=== PATIENT | female | born 1975 ===

== ENCOUNTER 2018-10-06 19:57 | Inpatient (IN) | payer OTHER, SELFPAY ==
--- NOTE | 2018-10-06 20:11 | Emergency Department Report ---
Blank Doc - Documentation Documentation: This is a 42-year-old female that presents with RLQ abdominal with radiating to right flank area. This initial assessment/diagnostic orders/clinical plan/treatment(s) is/are subject to change based on patient's health status, clinical progression and re- assessment by fellow clinical providers in the ED. Further treatment and workup at subsequent clinical providers discretion. Patient/guardians urged not to elope from the ED as their condition may be serious if not clinically assessed and managed. Initial orders include: 1- Patient sent to [facility] for further evaluation and treatment 2- labs 3- UA
[2018-10-06 21:02] LABS: Basophils % (Auto) 0.2 % (0.0-1.8); Eosinophils % (Auto) 0.1 % (0.0-4.3); Hematocrit 27.4 % (30.3-42.9); Hemoglobin 8.2 gm/dl (10.1-14.3); Lymphocytes # (Auto) 1.2 K/mm3 (1.2-5.4); Lymphocytes % (Auto) 6.6 % (13.4-35.0); Mean Corpuscular HGB Conc 30 % (30-34); Monocytes # (Auto) 0.8 K/mm3 (0.0-0.8); Monocytes % (Auto) 4.8 % (0.0-7.3); Platelet Count 453 K/mm3 (140-440); Red Blood Count 4.56 M/mm3 (3.65-5.03); Red Cell Distribution Width 19.8 % (13.2-15.2)
[2018-10-06 21:09] LABS: Mean Corpuscular Volume 60 fl (79-97)
[2018-10-06 21:18] LABS: Alanine Aminotransferase 14 units/L (7-56); Albumin 3.8 g/dL (3.9-5); BUN/Creatinine Ratio 24; Blood Urea Nitrogen 12 mg/dL (7-17); Calcium 9.1 mg/dL (8.4-10.2); Hemolysis Index 10
[2018-10-06 21:19] LABS: Bilirubin,Direct < 0.2 mg/dL (0-0.2)
[2018-10-06 21:39] LABS: Bilirubin,Urine NEG (Negative); Blood,Urine NEG (Negative); Color,Urine Yellow (Yellow); Mucus,Urine FEW /HPF; Urobilinogen,Urine < 2.0 mg/dL (<2.0)
[2018-10-06] MEDS ORDERED: NACL 0.9% 1000 ML IV ONE (22:26)
[2018-10-06] MEDS ORDERED: NACL 0.9% 1000 ML 1,000 ML ONE (22:34)
[2018-10-06] MEDS ORDERED: ZOFRAN ONE (22:47)
[2018-10-06] MEDS: DILAUDID IV PRN (23:08)
--- NOTE | 2018-10-06 23:28 | Cat Scan Report ---
PROCEDURE: CT ABDOMEN PELVIS W CON TECHNIQUE: Computerized axial tomography of the abdomen and pelvis was performed without intravenous contrast. This study is performed without intravascular contrast material and its sensitivity for ab dominal and pelvic pathology, including neoplasms, inflammation, abscess, free fluid, thrombosis, art erial dissection and infarction, is reduced compared with a contrast enhanced study. CT DOSE LENGTH PRODUCT: 3292.3 mGycm HISTORY: abd pain COMPARISONS: None . FINDINGS: Liver, spleen, pancreas and adrenal glands are within normal limits. Bilateral kidneys demonstrate un iform enhancement without hydronephrosis. Urinary bladder is normally filled with normal outlines. Ao rta is of normal caliber. There is no significant free fluid. No free air is noted. Gallbladder is un remarkable. Small bowel loops are within normal limits. Mild degree of residual stool. There is mild degree fat induration in the right adnexal region surrounding the right ovary. Right ovary measures 4 .8 x 2.8 cm. Appendix is located in close proximity to the right ovary. IMPRESSION: Fat induration surrounding the right ovary most likely represent changes secondary to et iologies such as tubo-ovarian inflammatory process. Appendicitis is felt to be less likely. Transabdo markos and transvaginal ultrasound pelvis and follow-up studies may be recommended. This document is electronically signed by Sarthak Mayfield MD., October 06 2018 11:25:47 PM ET
[2018-10-07 00:02] LABS: Mean Corpuscular HGB Conc 29 % (30-34); Platelet Count 447 K/mm3 (140-440); Red Blood Count 4.72 M/mm3 (3.65-5.03)
--- NOTE | 2018-10-07 00:09 | Emergency Department Report ---
ED Abdominal Pain HPI - General Chief Complaint: Abdominal Pain Stated Complaint: R FLANK PAIN Time Seen by Provider: 10/06/18 20:10 Source: patient Mode of arrival: Ambulatory Limitations: No Limitations - History of Present Illness Initial Comments: 42-year-old female comes to the emergency room for right lower quadrant pain that started this morning as be in mild and as the day progresses gotten worse. Patient denies any nausea vomiting or diarrhea. Patient denies any fever or chills. She denies any dysuria or hematuria. She has no past medical history currently takes no medications on a daily basis has no known drug allergies. Surgical history 15 years ago. -: This morning Location: R flank Radiation: RLQ Severity scale (0 -10): 10 Quality: stabbing, sharp Consistency: constant Improves With: nothing Worsens With: nothing Associated Symptoms: denies other symptoms - Related Data Previous Rx's Medication Instructions Recorded Last Taken Type DOXYCYCLINE Hyclate [Vibramycin 100 mg PO BID #14 capsule 10/11/18 Unknown Rx CAP] metroNIDAZOLE [Flagyl TAB] 500 mg PO Q8HR #42 tablet 10/11/18 Unknown Rx oxyCODONE /ACETAMINOPHEN [Percocet 1 tab PO Q8H PRN #7 tablet 10/11/18 Unknown Rx 5/325 mg] Allergies Allergy/AdvReac Type Severity Reaction Status Date / Time No Known Allergies Allergy Unverified 10/06/18 20:14 ED Review of Systems ROS: Stated complaint: R FLANK PAIN Other details as noted in HPI ED Past Medical Hx - Past Medical History Previous Medical History?: No - Surgical History Past Surgical History?: No - Social History Smoking Status: Never Smoker Substance Use Type: None - Medications Home Medications: Home Medications Medication Instructions Recorded Confirmed Last Taken Type DOXYCYCLINE Hyclate [Vibramycin 100 mg PO BID #14 capsule 10/11/18 Unknown Rx CAP] metroNIDAZOLE [Flagyl TAB] 500 mg PO Q8HR #42 tablet 10/11/18 Unknown Rx oxyCODONE /ACETAMINOPHEN [Percocet 1 tab PO Q8H PRN #7 tablet 10/11/18 Unknown Rx 5/325 mg] ED Physical Exam - General Limitations: No Limitations General appearance: alert, in distress (secondary to pain) - Eye Eye exam: Present: PERRL, EOMI - ENT ENT exam: Present: mucous membranes moist - Neck Neck exam: Present: normal inspection, full ROM - Respiratory Respiratory exam: Present: normal lung sounds bilaterally. Absent: respiratory distress - Cardiovascular Cardiovascular Exam: Present: tachycardia - GI/Abdominal GI/Abdominal exam: Present: soft, tenderness (right lower quadrant right flank), guarding. Absent: distended - Extremities Exam Extremities exam: Present: normal inspection, full ROM - Back Exam Back exam: Present: CVA tenderness (R) - Neurological Exam Neurological exam: Present: alert, oriented X3 - Psychiatric Psychiatric exam: Present: normal affect, normal mood - Skin Skin exam: Present: warm, dry, intact, normal color. Absent: rash ED Course Vital Signs 10/06/18 10/06/18 10/06/18 20:02 20:11 23:57 Temperature 98.8 F 98.2 F 98.3 F Pulse Rate 101 H 100 H 94 H Respiratory 20 16 29 H Rate Blood Pressure 126/72 126/72 Blood Pressure 133/78 [Right] O2 Sat by Pulse 98 98 100 Oximetry 10/07/18 10/07/18 10/07/18 02:21 03:25 04:00 Temperature 98.8 F 98.7 F Pulse Rate 85 85 86 Respiratory 20 23 24 Rate Blood Pressure 114/69 Blood Pressure 119/70 114/65 [Right] O2 Sat by Pulse 99 95 96 Oximetry 10/07/18 10/07/18 10/07/18 04:51 05:00 05:11 Temperature Pulse Rate 87 84 86 Respiratory 23 17 27 H Rate Blood Pressure 120/71 127/80 124/73 Blood Pressure [Right] O2 Sat by Pulse 98 98 98 Oximetry 10/07/18 10/07/18 10/07/18 05:21 05:31 05:41 Temperature Pulse Rate 90 88 88 Respiratory 29 H 25 H 26 H Rate Blood Pressure 124/73 124/73 124/73 Blood Pressure [Right] O2 Sat by Pulse 96 97 97 Oximetry 10/07/18 10/07/18 10/07/18 05:51 06:00 06:11 Temperature Pulse Rate 87 88 97 H Respiratory 24 26 H 25 H Rate Blood Pressure 124/73 122/73 122/73 Blood Pressure [Right] O2 Sat by Pulse 97 96 99 Oximetry ED Medical Decision Making - Lab Data Result diagrams: 10/11/18 04:45 10/11/18 20:44 Lab Results 10/06/18 10/06/1819 Range/Units 20:18 20:18 20:18 WBC 17.5 H (4.5-11.0) K/mm3 RBC 4.56 (3.65-5.03) M/mm3 Hgb 8.2 L (10.1-14.3) gm/dl Hct 27.4 L (30.3-42.9) % MCV 60 L (79-97) fl MCH 18 L (28-32) pg MCHC 30 (30-34) % RDW 19.8 H (13.2-15.2) % Plt Count 453 H (140-440) K/mm3 Lymph % (Auto) 6.6 L (13.4-35.0) % [place] % (Auto) 4.8 (0.0-7.3) % Eos % (Auto) 0.1 (0.0-4.3) % Baso % (Auto) 0.2 (0.0-1.8) % Lymph # 1.2 (1.2-5.4) K/mm3 [place] # 0.8 (0.0-0.8) K/mm3 Eos # 0.0 (0.0-0.4) K/mm3 Baso # 0.0 (0.0-0.1) K/mm3 Seg Neutrophils % 88.3 H (40.0-70.0) % Seg Neutrophils # 15.4 H (1.8-7.7) K/mm3 Sodium 133 L (137-145) mmol/L Potassium 3.6 (3.6-5.0) mmol/L Chloride 104.8 (98-107) mmol/L Carbon Dioxide 19 L (22-30) mmol/L Anion Gap 13 mmol/L BUN 12 (7-17) mg/dL Creatinine 0.5 L (0.7-1.2) mg/dL Estimated GFR > 60 ml/min BUN/Creatinine Ratio 24 % Glucose 133 H (65-100) mg/dL Lactic Acid (0.7-2.0) mmol/L Calcium 9.1 (8.4-10.2) mg/dL Total Bilirubin 0.20 (0.1-1.2) mg/dL Direct Bilirubin < 0.2 (0-0.2) mg/dL Indirect Bilirubin 0.0 mg/dL AST 18 (5-40) units/L ALT 14 (7-56) units/L Alkaline Phosphatase 88 (35-129) units/L Total Protein 7.8 (6.3-8.2) g/dL Albumin 3.8 L (3.9-5) g/dL Albumin/Globulin Ratio 1.0 % Lipase 109 H (13-60) units/L HCG, Qual Negative (Negative) Urine Color (Yellow) Urine Turbidity (Clear) Urine pH (5.0-7.0) Ur Specific [place] (1.003-1.030) Urine Protein (Negative) mg/dL Urine Glucose (UA) (Negative) mg/dL Urine Ketones (Negative) mg/dL Urine Blood (Negative) Urine Nitrite (Negative) Urine Bilirubin (Negative) Urine Urobilinogen (<2.0) mg/dL Ur Leukocyte Esterase (Negative) Urine WBC (Auto) (0.0-6.0) /HPF Urine RBC (Auto) (0.0-6.0) /HPF U Epithel Cells (Auto) (0-13.0) /HPF Urine Mucus /HPF 10/06/18 10/06/18 10/06/18 Range/Units 21:20 23:11 23:11 WBC 19.2 H (4.5-11.0) K/mm3 RBC 4.72 (3.65-5.03) M/mm3 Hgb 8.3 L (10.1-14.3) gm/dl Hct 28.6 L (30.3-42.9) % MCV 61 L (79-97) fl MCH 18 L (28-32) pg MCHC 29 L (30-34) % RDW 20.1 H (13.2-15.2) % Plt Count 447 H (140-440) K/mm3 Lymph % (Auto) (13.4-35.0) % [place] % (Auto) (0.0-7.3) % Eos % (Auto) (0.0-4.3) % Baso % (Auto) (0.0-1.8) % Lymph # (1.2-5.4) K/mm3 [place] # (0.0-0.8) K/mm3 Eos # (0.0-0.4) K/mm3 Baso # (0.0-0.1) K/mm3 Seg Neutrophils % (40.0-70.0) % Seg Neutrophils # (1.8-7.7) K/mm3 Sodium (137-145) mmol/L Potassium (3.6-5.0) mmol/L Chloride (98-107) mmol/L Carbon Dioxide (22-30) mmol/L Anion Gap mmol/L BUN (7-17) mg/dL Creatinine (0.7-1.2) mg/dL Estimated GFR ml/min BUN/Creatinine Ratio % Glucose (65-100) mg/dL Lactic Acid 1.30 (0.7-2.0) mmol/L Calcium (8.4-10.2) mg/dL Total Bilirubin (0.1-1.2) mg/dL Direct Bilirubin (0-0.2) mg/dL Indirect Bilirubin mg/dL AST (5-40) units/L ALT (7-56) units/L Alkaline Phosphatase (35-129) units/L Total Protein (6.3-8.2) g/dL Albumin (3.9-5) g/dL Albumin/Globulin Ratio % Lipase (13-60) units/L HCG, Qual (Negative) Urine Color Yellow (Yellow) Urine Turbidity Clear (Clear) Urine pH 5.0 (5.0-7.0) Ur Specific [place] 1.028 (1.003-1.030) Urine Protein 100 mg/dl (Negative) mg/dL Urine Glucose (UA) Neg (Negative) mg/dL Urine Ketones Neg (Negative) mg/dL Urine Blood Neg (Negative) Urine Nitrite Neg (Negative) Urine Bilirubin Neg (Negative) Urine Urobilinogen < 2.0 (<2.0) mg/dL Ur Leukocyte Esterase Neg (Negative) Urine WBC (Auto) 1.0 (0.0-6.0) /HPF Urine RBC (Auto) 4.0 (0.0-6.0) /HPF U Epithel Cells (Auto) 2.0 (0-13.0) /HPF Urine Mucus Few /HPF 10/07/18 Range/Units 01:43 WBC (4.5-11.0) K/mm3 RBC (3.65-5.03) M/mm3 Hgb (10.1-14.3) gm/dl Hct (30.3-42.9) % MCV (79-97) fl MCH (28-32) pg MCHC (30-34) % RDW (13.2-15.2) % Plt Count (140-440) K/mm3 Lymph % (Auto) (13.4-35.0) % [place] % (Auto) (0.0-7.3) % Eos % (Auto) (0.0-4.3) % Baso % (Auto) (0.0-1.8) % Lymph # (1.2-5.4) K/mm3 [place] # (0.0-0.8) K/mm3 Eos # (0.0-0.4) K/mm3 Baso # (0.0-0.1) K/mm3 Seg Neutrophils % (40.0-70.0) % Seg Neutrophils # (1.8-7.7) K/mm3 Sodium (137-145) mmol/L Potassium (3.6-5.0) mmol/L Chloride (98-107) mmol/L Carbon Dioxide (22-30) mmol/L Anion Gap mmol/L BUN (7-17) mg/dL Creatinine (0.7-1.2) mg/dL Estimated GFR ml/min BUN/Creatinine Ratio % Glucose (65-100) mg/dL Lactic Acid 1.20 (0.7-2.0) mmol/L Calcium (8.4-10.2) mg/dL Total Bilirubin (0.1-1.2) mg/dL Direct Bilirubin (0-0.2) mg/dL Indirect Bilirubin mg/dL AST (5-40) units/L ALT (7-56) units/L Alkaline Phosphatase (35-129) units/L Total Protein (6.3-8.2) g/dL Albumin (3.9-5) g/dL Albumin/Globulin Ratio % Lipase (13-60) units/L HCG, Qual (Negative) Urine Color (Yellow) Urine Turbidity (Clear) Urine pH (5.0-7.0) Ur Specific [place] (1.003-1.030) Urine Protein (Negative) mg/dL Urine Glucose (UA) (Negative) mg/dL Urine Ketones (Negative) mg/dL Urine Blood (Negative) Urine Nitrite (Negative) Urine Bilirubin (Negative) Urine Urobilinogen (<2.0) mg/dL Ur Leukocyte Esterase (Negative) Urine WBC (Auto) (0.0-6.0) /HPF Urine RBC (Auto) (0.0-6.0) /HPF U Epithel Cells (Auto) (0-13.0) /HPF Urine Mucus /HPF - Radiology Data Radiology results: report reviewed - Medical Decision Making Patient has been evaluated by this provider in [facility]. Sepsis protocol was initiated. CT of abdomen and pelvis with contrast Ultrasound abdomen and pelvic. Transvaginal has been ordered. Patient was referred over to the main ER for further evaluation by [facility] Critical care attestation.: If time is entered above; I have spent that time in minutes in the direct care of this critically ill patient, excluding procedure time. ED Disposition Clinical Impression: Sepsis, Tubo-ovarian abscess, Anemia Disposition: OP ADMIT IP TO THIS HOSP Is pt being admited?: Yes Does the pt Need Aspirin: Yes Condition: Stable
[2018-10-07 00:11] LABS: Hematocrit 28.6 % (30.3-42.9); Hemoglobin 8.3 gm/dl (10.1-14.3); Mean Corpuscular Volume 61 fl (79-97); Red Cell Distribution Width 20.1 % (13.2-15.2)
[2018-10-07] MEDS ORDERED: DILAUDID IV ONE (00:51)
--- NOTE | 2018-10-07 02:26 | Ultrasound Report ---
PROCEDURE: US TRANSVAGINAL TECHNIQUE: Transvaginal imaging was obtained the pelvis including Doppler interrogation of the adnex a. HISTORY: abd pain radiologist recommends US COMPARISONS: None FINDINGS: The uterus is anteverted measuring 9 cm x 5.4 cm x 4.7 cm. The endometrial thickness is 8.7 mm. In th e posterior wall of the body of uterus is a 2 cm fibroid. Free fluid is not seen. The right ovary is enlarged measuring 5.6 x 4.4 x 3.9 cm. There are multiple follicles and cysts in t he right ovary the largest measuring 2 cm in diameter. The blood flow is normal to the right ovary. The left ovary is not seen. IMPRESSION: Enlarged right ovary containing multiple functional cysts, 2 of which measure 2 cm in diameter.. No e vidence of ovarian torsion. Left ovary not seen. 2 cm fibroid posterior wall body of uterus. This document is electronically signed by Jagjit Terry MD., October 07 2018 02:24:13 AM ET
[2018-10-07] MEDS ORDERED: ZOFRAN IV ONE ×2 (02:37→03:37)
--- NOTE | 2018-10-07 02:37 | Ultrasound Report ---
PROCEDURE: US ABDOMEN COMPLETE, US PELVIC COMPLETE TECHNIQUE: Grayscale and Doppler and color imaging was obtained of the abdomen and pelvis using a tr ansabdominal and transvaginal transducers. HISTORY: Abdominal/pelvic pain. COMPARISONS: CT dated October 06, 2018. FINDINGS: ABDOMEN: Liver: Echogenicity: Unremarkable. Surface nodularity: None. Mass (size and location): None identified on the provided images. Gallbladder: Normal appearance. Gallstones: None. Gallbladder wall: 3mm and contracted. Pericholecystic fluid: None. Bile ducts: Intrahepatic ducts: Normal. Common duct: Normal. Pancreas: Head and uncinate process: Evaluated portions without identified abnormality. Body and tail obscured by bowel gas. Spleen: Splenomegaly: None. Craniocaudal length: 10.8 cm Normal (<12 cm in one dimension and/or 120-480 cm^3). Right kidney: Length: 4.9 x 4.8 x 6.0 cm No hydronephrosis. Left kidney: Length: 10.8 x 5.5 x 6.8 cm. Abdominal aorta and IVC: Visualized portion have an unremarkable appearance. PELVIS: LMP: September 21, 2018. Uterus: 9.0 x 5.4 x 4.7 cm. Anteverted. 2.0 cm posterior body/fundal uterine fibroid. Endometrial stripe: 8.7 mm. Endometrial stripe: mm Right ovary: 5.6 x 4.4 x 3.9 cm. 2.0 cm cystic dominant follicles are present. Left ovary: Not visualized. IMPRESSION: 1. Enlarged right ovary with peripheral prominent follicles. Arterial flow is noted within the ovary , however presence of arterial flow does not preclude the diagnosis of ovarian torsion in the appropr iate clinical setting. 2. Uterine fibroid. 3. Left ovary not visualized. 4. No acute abdominal pathology, specifically no sonographic features of acute cholecystitis or hydro nephrosis. This document is electronically signed by Huy Harris DO., October 07 2018 02:35:12 AM ET
[2018-10-07] MEDS ORDERED: FLAGYL 500 MG/100 ML 500 MG/100 ML BAG IV ONE (02:47)
[2018-10-07] MEDS ORDERED: ZOSYN/NS 4.5GM/100ML 4.5 GM/100 ML VIAL IV ONE (02:47)
[2018-10-07 03:19] LABS: Basophils % (Manual) 0 % (0.0-1.8); Eosinophils % (Manual) 0 % (0.0-4.3); Total Cells Counted 100
--- NOTE | 2018-10-07 03:19 | Emergency Department Report ---
Blank Doc - Documentation Documentation: I went to see this patient for a reevaluation of her consistent right lower qu adrant abdominal and/or pelvic pains. The patient initially had a white blood cell count of about 17 some reason ended up having a repeat CBC and the white count increased to about 19.5. The patient has had multiple doses of IV narcotic pain medication and continues to have this discomfort. CT did not show any obvious source of infection or etiology of her pain. However I was called by the radiology service with concern for the findings on the transvaginal ultrasound that showed an enlarged right ovary with some fat stranding. Dr. Luna says that he did see some arterial flow but given the clinical presentation and ovarian torsion cannot fully be ruled out. I then spoke with Dr. Warner, COMPANY DRIVER estate conservator, who felt that the size of the right ovary at about 5 cm does not appear consistent with an ovarian torsion and this does not appear to be a surgical emergency. However she has agreed to see the patient has a consult. The patient will be admitted to the hospital for her intractable abdominal and pelvic pains. She has been started on IV antibiotics.
[2018-10-07 03:20] LABS: Hypochromasia 2+; Large Platelets 1+; Ovalocytes 1+
[2018-10-07 03:21] LABS: Platelet Estimate Consistent w Auto; Tear Drop Cells 1+
[2018-10-07] MEDS ORDERED: MORPHINE IV ONE (04:57)
--- NOTE | 2018-10-07 04:59 | History and Physical Report ---
History of Present Illness Date of examination: 10/07/18 History of present illness: 42-year-old woman with no medical problems comes emergency room with complaints of right lower quadrant abdominal pain which she describes as sharp, constant, intensity 8/10, radiating to the back, relieved with pain medication. Admits to nausea, subjective fever, chills Review of systems Constitutional: no weight loss, chills, fever Ears, eyes, nose, mouth and throat: no nasal congestion, no nasal discharge, no sinus pressure, no vision change, no red eye. Neck: No neck pain or rigidity. Cardiovascular: no palpitations, chest pain Respiratory: no cough, shortness of breath Gastrointestinal: no hematochezia, +abdominal pain Genitourinary : no frequency , no hematuria Musculoskeletal: no joint swelling or muscle ache Integumentary: no rash, no pruritis Neurological: no parathesias, no focal weakness Endocrine: no cold or heat intolerance, no polyuria or polydipsia Hematologic/Lymphatic: no easy bruising, no easy bleeding, no gland swelling Allergic/Immunologic: no urticaria, no angioedema. PAST MEDICAL HISTORY: None PAST SURGICAL HISTORY: SOCIAL HISTORY: Denies alcohol, tobacco, drugs FAMILY HISTORY: Hypertension Medications and Allergies Allergies Allergy/AdvReac Type Severity Reaction Status Date / Time No Known Allergies Allergy Unverified 10/06/18 20:14 Home Medications Medication Instructions Recorded Confirmed Last Taken Type DOXYCYCLINE Hyclate [Vibramycin 100 mg PO BID #14 capsule 10/11/18 Unknown Rx CAP] metroNIDAZOLE [Flagyl TAB] 500 mg PO Q8HR #42 tablet 10/11/18 Unknown Rx oxyCODONE /ACETAMINOPHEN [Percocet 1 tab PO Q8H PRN #7 tablet 10/11/18 Unknown Rx 5/325 mg] Active Meds: Active Medications Hydromorphone HCl (Dilaudid) 0.5 mg IV Q4H PRN PRN Reason: Pain , Severe (7-10) Last Admin: 10/06/18 23:08 Dose: 0.5 mg Documented by: Exam - Physical Exam Narrative exam: Gen. appearance: Patient lying in bed, no apparent distress HEENT: Normocephalic, atraumatic, pupils equally round and reactive to light, extraocular movement intact, and no sclericterus,. No JVD or thyromegaly or nodule,neck supple, no carotid bruit ,mucous membranes moist, no exudate or erythema Heart: S1, S2, regular rate and rhythm Lungs: Clear bilaterally, breathing comfortable Abdomen: Positive bowel sounds, tender, no rebound or guarding nondistended, no organomegaly Extremity:no edema cyanosis, clubbing Skin: no rash, dry, warm Neuro: Oriented 3, cranial nerves II-12 intact, speech is fluent, motor and sensory intact - Constitutional Vitals: Temp Pulse Resp BP Pulse Ox 98.7 F 86 24 114/69 96 10/07/18 03:25 10/07/18 04:00 10/07/18 04:00 10/07/18 04:00 10/07/18 04:00 Results - Labs CBC & Chem 7: 10/11/18 04:45 10/11/18 20:44 Labs: Abnormal lab results 10/06/18 10/06/18 10/06/18 Range/Units 20:18 20:18 23:11 WBC 17.5 H 19.2 H (4.5-11.0) K/mm3 Hgb 8.2 L 8.3 L (10.1-14.3) gm/dl Hct 27.4 L 28.6 L (30.3-42.9) % MCV 60 L 61 L (79-97) fl MCH 18 L 18 L (28-32) pg MCHC 29 L (30-34) % RDW 19.8 H 20.1 H (13.2-15.2) % Plt Count 453 H 447 H (140-440) K/mm3 Lymph % (Auto) 6.6 L (13.4-35.0) % Seg Neutrophils % 88.3 H (40.0-70.0) % Seg Neuts % (Manual) 89.0 H (40.0-70.0) % Lymphocytes % (Manual) 7.0 L (13.4-35.0) % Seg Neutrophils # 15.4 H (1.8-7.7) K/mm3 Seg Neutrophils # Man 17.1 H (1.8-7.7) K/mm3 Sodium 133 L (137-145) mmol/L Carbon Dioxide 19 L (22-30) mmol/L Creatinine 0.5 L (0.7-1.2) mg/dL Glucose 133 H (65-100) mg/dL Albumin 3.8 L (3.9-5) g/dL Lipase 109 H (13-60) units/L - Imaging and Cardiology CT scan - abdomen: report reviewed CT scan - pelvis: report reviewed Assessment and Plan Pelvic and transvaginal ultrasound were reviewed Assessment SIRS Enlarged right ovary Anemia Plan Admit to medicine Start IV fluid, start IV Rocephin, Flagyl, doxycycline Consulted infectious disease, case discussed with Dr. Brumfield BLOW MOULDING MACHINE OPERATOR was consulted for the patient in the emergency room IV morphine, DVT prophylaxis, check iron studies
[2018-10-07] MEDS ORDERED: VANCOMYCIN/NS 1 GM/250 ML 1 GM/250 ML BAG IV ONE (05:30)
[2018-10-07] MEDS ORDERED: SODIUM CHLORIDE FLUSH SYRINGE 10 ML IV PRN (05:50)
[2018-10-07] MEDS ORDERED: UNASYN/NS 3 GM/100 ML 3 GM/100 ML BAG IV SCH (06:00)
[2018-10-07 08:44] LABS: Hematocrit 25.5 % (30.3-42.9); Hemoglobin 7.6 gm/dl (10.1-14.3); Mean Corpuscular HGB Conc 30 % (30-34); Platelet Count 387 K/mm3 (140-440); Red Blood Count 4.22 M/mm3 (3.65-5.03); Red Cell Distribution Width 19.5 % (13.2-15.2)
[2018-10-07 08:45] LABS: Iron 21 ug/dL (37-170); Total Iron Binding Capacity 415 mcg/dL (250-450)
[2018-10-07 08:55] LABS: Mean Corpuscular Volume 61 fl (79-97)
[2018-10-07 09:04] LABS: BUN/Creatinine Ratio 13; Blood Urea Nitrogen 5 mg/dL (7-17); Hemolysis Index 0
[2018-10-07] MEDS ORDERED: ROCEPHIN/NS 1 GM/50 ML 1 GM/50 ML BAG IV SCH (10:00)
[2018-10-07] MEDS: NACL 0.9% 1000 ML 1,000 ML IV SCH (10:54)
[2018-10-07] MEDS: MORPHINE IV PRN ×2 (11:00→18:37)
[2018-10-07] MEDS: DOXYCYCLINE HYCLATE 100 MG in NACL 0.9% 250ML 250 ML IV SCH ×2 (11:11→20:45)
[2018-10-07] MEDS: LOVENOX SUB-Q SCH (11:15)
[2018-10-07] MEDS: SODIUM CHLORIDE FLUSH SYRINGE 10 ML IV SCH ×2 (11:16→22:06)
--- NOTE | 2018-10-07 11:18 | Event Note ---
Date: 10/07/18 Patient was seen and divided this morning. Patient was admitted earlier this morning. Patient's complaining right lower quadrant pain. CT showed right vulvar and inflammation. ID and DIESEL SCOOP OPERATOR consulted. Patient is on IV antibiotics and pain medications. Continue management as outlined in H&P.
[2018-10-07 12:00] LABS: Band Neutrophils # (Manual) 0.2 K/mm3; Basophils % (Manual) 0 % (0.0-1.8); Eosinophils % (Manual) 0 % (0.0-4.3); Hypochromasia 3+; Large Platelets Few; Ovalocytes 1+; Platelet Estimate Consistent w Auto; Tear Drop Cells Few; Total Cells Counted 100
[2018-10-07] MEDS: DILAUDID IV PRN (13:11)
[2018-10-07] MEDS: FLAGYL 500 MG/100 ML 500 MG/100 ML BAG IV SCH ×2 (13:16→22:37)
--- NOTE | 2018-10-07 13:56 | History and Physical Report ---
History of Present Illness Date of examination: 10/07/18 Date of admission: 10/07/18 04:58 Chief complaint: abdominal pain on the right History of present illness: This is a 42 yo G 1 P1 LMP2 weeks ago here for abdominal pain. She states that she had pain yesterday. The pain became unbearable. she reports improvement of pain. no vb. no n,v, f, nor chills. She reports no medical history Past History Past Medical History: no pertinent history Past Surgical History: no surgical history Family/Genetic History: none Social history: . denies: smoking, alcohol abuse, prescription drug abuse Medications and Allergies Allergies Allergy/AdvReac Type Severity Reaction Status Date / Time No Known Allergies Allergy Unverified 10/06/18 20:14 Home Medications Medication Instructions Recorded Confirmed Last Taken Type No Known Home Medications [No 10/07/18 10/07/18 Unknown History Reported Home Medications] Active Meds: Active Medications Acetaminophen (Tylenol) 650 mg PO Q4H PRN PRN Reason: Pain MILD(1-3)/Fever >100.5/KIRKPATRICK Enoxaparin Sodium (Lovenox) 40 mg SUB-Q QDAY MAURICE Last Admin: 10/07/18 11:15 Dose: 40 mg Documented by: Hydromorphone HCl (Dilaudid) 0.5 mg IV Q4H PRN PRN Reason: Pain , Severe (7-10) Last Admin: 10/07/18 13:11 Dose: 0.5 mg Documented by: Sodium Chloride (Nacl 0.9% 1000 Ml) 1,000 mls @ 150 mls/hr IV DIRECT MAURICE Last Admin: 10/07/18 10:54 Dose: 150 mls/hr Documented by: Doxycycline Hyclate 100 mg/ (Sodium Chloride) 250 mls @ 250 mls/hr IV Q12H MAURICE; Protocol Last Admin: 10/07/18 11:11 Dose: 250 mls/hr Documented by: Ceftriaxone Sodium (Rocephin/Ns 1 Gm/50 Ml) 1 gm in 50 mls @ 100 mls/hr IV Q24HR MAURICE; Protocol Metronidazole (Flagyl 500 Mg/100 Ml) 500 mg in 100 mls @ 100 mls/hr IV Q8HR MAURICE; Protocol Last Admin: 10/07/18 13:16 Dose: 100 mls/hr Documented by: Morphine Sulfate (Morphine) 2 mg IV Q4H PRN PRN Reason: Pain, Moderate (4-6) Last Admin: 10/07/18 11:00 Dose: 2 mg Documented by: Ondansetron HCl (Zofran) 4 mg IV Q4H PRN PRN Reason: Nausea And Vomiting Oxycodone/Acetaminophen (Percocet 5/325) 2 tab PO Q4H PRN PRN Reason: Pain, Moderate (4-6) Sodium Chloride (Sodium Chloride Flush Syringe 10 Ml) 10 ml IV BID MAURICE Last Admin: 10/07/18 11:16 Dose: 10 ml Documented by: Sodium Chloride (Sodium Chloride Flush Syringe 10 Ml) 10 ml IV PRN PRN PRN Reason: LINE FLUSH Review of Systems All systems: negative Gastrointestinal: abdominal pain - Vital Signs Vital signs: Vital Signs Temp Pulse Resp BP Pulse Ox 98.8 F 101 H 20 126/72 98 10/06/18 20:02 10/06/18 20:02 10/06/18 20:02 10/06/18 20:02 10/06/18 20:02 Temp Pulse Resp BP Pulse Ox 98.7 F 86 24 114/69 96 10/07/18 03:25 10/07/18 04:00 10/07/18 04:00 10/07/18 04:00 10/07/18 04:00 - Physical Exam Breasts: Positive: normal Cardiovascular: Regular rate, Normal S1 Lungs: Positive: Clear to auscultation, Normal air movement Abdomen: Positive: normal appearance, soft, tenderness, normal bowel sounds. Negative: distention, guarding Genitourinary (Female): Positive: normal external genitalia, normal perenium Uterus: Positive: normal size, normal contour. Negative: tender Anus/Rectum: Positive: normal perianal skin Extremities: Positive: normal Deep Tendon Reflex Grade: Normal +2 Results Result Diagrams: 10/07/18 08:19 10/07/18 08:19 Abnormal lab results 10/06/18 10/06/18 10/06/18 Range/Units 20:18 20:18 23:11 WBC 17.5 H 19.2 H (4.5-11.0) K/mm3 Hgb 8.2 L 8.3 L (10.1-14.3) gm/dl Hct 27.4 L 28.6 L (30.3-42.9) % MCV 60 L 61 L (79-97) fl MCH 18 L 18 L (28-32) pg MCHC 29 L (30-34) % RDW 19.8 H 20.1 H (13.2-15.2) % Plt Count 453 H 447 H (140-440) K/mm3 Lymph % (Auto) 6.6 L (13.4-35.0) % Seg Neutrophils % 88.3 H (40.0-70.0) % Seg Neuts % (Manual) 89.0 H (40.0-70.0) % Lymphocytes % (Manual) 7.0 L (13.4-35.0) % Seg Neutrophils # 15.4 H (1.8-7.7) K/mm3 Seg Neutrophils # Man 17.1 H (1.8-7.7) K/mm3 Lymphocytes # (Manual) (1.2-5.4) K/mm3 Sodium 133 L (137-145) mmol/L Carbon Dioxide 19 L (22-30) mmol/L BUN (7-17) mg/dL Creatinine 0.5 L (0.7-1.2) mg/dL Glucose 133 H (65-100) mg/dL Calcium (8.4-10.2) mg/dL Iron (37-170) ug/dL Ferritin (13.0-400.0) ng/mL Albumin 3.8 L (3.9-5) g/dL Lipase 109 H (13-60) units/L 10/07/18 10/07/18 10/07/18 Range/Units 07:35 07:35 08:19 WBC 19.1 H (4.5-11.0) K/mm3 Hgb 7.6 L (10.1-14.3) gm/dl Hct 25.5 L (30.3-42.9) % MCV 61 L (79-97) fl MCH 18 L (28-32) pg MCHC (30-34) % RDW 19.5 H (13.2-15.2) % Plt Count (140-440) K/mm3 Lymph % (Auto) (13.4-35.0) % Seg Neutrophils % (40.0-70.0) % Seg Neuts % (Manual) 91.0 H (40.0-70.0) % Lymphocytes % (Manual) 4.0 L (13.4-35.0) % Seg Neutrophils # (1.8-7.7) K/mm3 Seg Neutrophils # Man 17.4 H (1.8-7.7) K/mm3 Lymphocytes # (Manual) 0.8 L (1.2-5.4) K/mm3 Sodium (137-145) mmol/L Carbon Dioxide (22-30) mmol/L BUN (7-17) mg/dL Creatinine (0.7-1.2) mg/dL Glucose (65-100) mg/dL Calcium (8.4-10.2) mg/dL Iron 21 L (37-170) ug/dL Ferritin 9.4 L (13.0-400.0) ng/mL Albumin (3.9-5) g/dL Lipase (13-60) units/L 04//19 Range/Units 08:19 WBC (4.5-11.0) K/mm3 Hgb (10.1-14.3) gm/dl Hct (30.3-42.9) % MCV (79-97) fl MCH (28-32) pg MCHC (30-34) % RDW (13.2-15.2) % Plt Count (140-440) K/mm3 Lymph % (Auto) (13.4-35.0) % Seg Neutrophils % (40.0-70.0) % Seg Neuts % (Manual) (40.0-70.0) % Lymphocytes % (Manual) (13.4-35.0) % Seg Neutrophils # (1.8-7.7) K/mm3 Seg Neutrophils # Man (1.8-7.7) K/mm3 Lymphocytes # (Manual) (1.2-5.4) K/mm3 Sodium 135 L (137-145) mmol/L Carbon Dioxide 20 L (22-30) mmol/L BUN 5 L (7-17) mg/dL Creatinine 0.4 L (0.7-1.2) mg/dL Glucose 126 H (65-100) mg/dL Calcium 8.0 L (8.4-10.2) mg/dL Iron (37-170) ug/dL Ferritin (13.0-400.0) ng/mL Albumin (3.9-5) g/dL Lipase (13-60) units/L All other labs normal. Ultrasound: report reviewed CT scan - abdomen: report reviewed Assessment and Plan A/P HD#1 abdominal pain ovarian cyst vs PID recommended continued pain meds, abx repeat US in 3-4 weeks consider ID for specific treatment ( leukocytosis) US reviewed -flow to ovary -normal, fibroids, and ovarian cyst close monitor of VS will follow with you
--- NOTE | 2018-10-07 15:24 | Consultation ---
History of Present Illness - Reason for Consult Consult date: 10/07/18 PID Requesting physician: JUAN MONIQUE - History of Present Illness 42 y/o female with obesity and no other medical history; admitted on 10/06/2018 with 3-day history of worsening RLL pain associated with nausea. She reports pain has been on/off for several weeks but became severe. Patient is 10 of 10 and radiates to the right back. Denies vaginal discharge. Denies IUD. In the ED, temp 98.8, HR 101, R 20, O2 sat 98%, BP 126/72. WBC 19, Hg 8.3, Kerwin 447. Lactate 1.3. LFTs normal. Lipase 109. UA neg. Blood culture 10/06/[address] abd showed mild degree fat induration in the right adnexal region surrounding the right ovary. Right ovary measures 4.8 x 2.8 cm. Appendix is located in close proximity to the right ovary. Pelvic US showed Right ovary: 5.6 x 4.4 x 3.9 cm. 2.0 cm cystic dominant follicles are present -Enlarged right ovary with peripheral prominent follicles. Review of Systems: General: no fever, chills, nightsweats, unintentional weight change, or change in appetite Cutaneous: no rash, pruritus Head: no headaches or injury Eyes: no changes in vision, eye pain, double vision Ears: no ear pain, ear discharge, ringing or hearing loss Nose: no nose bleeding, stuffiness Mouth & throat: no bleeding gums, no horseness, no dental problems, or swollen glands Neck: no pain, node enlargement/lumps, tyroid enlargement or tenderness Respiratory: no cough, wheezing, sputum, hemoptysis, pleuritic chest pain Cardiovascular: no chest pain, leg edema, cyanosis, CARMONA, orthopnea Musculoskeletal: no decreased joint motion, bone or joint pain, joint swelling, muscle aches Gastrointestinal: + right sided abdominal pain. no nausea, vomiting, hematemesis, diarrhea, constipation, melena, bright red blood in stools, fecal incontinence, jaundice Genitourinary/Reproductive: no frequent urination, dysuria, hematuria, incontinence Neurogical: no seizures, no headaches, no weakness, no paresthesias, no loss of speech or vision; no memory loss, no vertigo, no tremors, no numbness Psychiatric: stable mood; no excessive anxiety, sadness or moodiness Past History Social history: . denies: smoking, alcohol abuse, prescription drug abuse Medications and Allergies Allergies Allergy/AdvReac Type Severity Reaction Status Date / Time No Known Allergies Allergy Unverified 10/06/18 20:14 Home Medications Medication Instructions Recorded Confirmed Last Taken Type No Known Home Medications [No 10/07/18 10/07/18 Unknown History Reported Home Medications] Active Meds: Active Medications Acetaminophen (Tylenol) 650 mg PO Q4H PRN PRN Reason: Pain MILD(1-3)/Fever >100.5/KIRKPATRICK Enoxaparin Sodium (Lovenox) 40 mg SUB-Q QDAY MAURICE Last Admin: 10/07/18 11:15 Dose: 40 mg Documented by: Hydromorphone HCl (Dilaudid) 0.5 mg IV Q4H PRN PRN Reason: Pain , Severe (7-10) Last Admin: 10/07/18 13:11 Dose: 0.5 mg Documented by: Sodium Chloride (Nacl 0.9% 1000 Ml) 1,000 mls @ 150 mls/hr IV DIRECT MAURICE Last Admin: 10/07/18 10:54 Dose: 150 mls/hr Documented by: Doxycycline Hyclate 100 mg/ (Sodium Chloride) 250 mls @ 250 mls/hr IV Q12H MAURICE; Protocol Last Admin: 10/07/18 11:11 Dose: 250 mls/hr Documented by: Ceftriaxone Sodium (Rocephin/Ns 1 Gm/50 Ml) 1 gm in 50 mls @ 100 mls/hr IV Q24HR MAURICE; Protocol Last Admin: 10/07/18 15:19 Dose: 100 mls/hr Documented by: Metronidazole (Flagyl 500 Mg/100 Ml) 500 mg in 100 mls @ 100 mls/hr IV Q8HR MAURICE; Protocol Last Admin: 10/07/18 13:16 Dose: 100 mls/hr Documented by: Morphine Sulfate (Morphine) 2 mg IV Q4H PRN PRN Reason: Pain, Moderate (4-6) Last Admin: 10/07/18 11:00 Dose: 2 mg Documented by: Ondansetron HCl (Zofran) 4 mg IV Q4H PRN PRN Reason: Nausea And Vomiting Oxycodone/Acetaminophen (Percocet 5/325) 2 tab PO Q4H PRN PRN Reason: Pain, Moderate (4-6) Sodium Chloride (Sodium Chloride Flush Syringe 10 Ml) 10 ml IV BID MAURICE Last Admin: 10/07/18 11:16 Dose: 10 ml Documented by: Sodium Chloride (Sodium Chloride Flush Syringe 10 Ml) 10 ml IV PRN PRN PRN Reason: LINE FLUSH Physical Examination - Physical Exam Narrative exam: General appearance: Alert in NAD, conversant Eyes: anicteric sclerae, moist conjunctivae; no lid-lag; PERRLA HENT: Atraumatic; oropharynx clear with moist mucous membranes and no mucosal ulcerations/no oral thrush; normal hard and soft palate. Normal external ears. Neck: Trachea midline; supple, no thyromegaly or lymphadenopathy Lungs: CTA, with normal respiratory effort and no intercostal retractions CV: RRR, no murmurs Abdomen: Soft, TTP RLQ no rebound Extremities: No peripheral edema or extremity lymphadenopathy Skin: Normal temperature, turgor and texture; no rash, ulcers or subcutaneous nodules Psych: Appropriate affect, alert and oriented to person, place and time. Neuro: alert and oriented x 3. Moving all extermities - Constitutional Vitals: Vital Signs Temp Pulse Resp BP Pulse Ox 98.7 F 86 24 114/69 96 10/07/18 03:25 10/07/18 04:00 10/07/18 04:00 10/07/18 04:00 10/07/18 04:00 Temperature -Last 24 Hours Temperature 98.7 F Temperature 98.8 F Temperature 98.3 F Temperature 98.2 F Temperature 98.8 F Results - Labs CBC & Chem 7: 10/07/18 08:19 10/07/18 08:19 Labs: Abnormal lab results 10/06/18 10/06/18 10/06/18 Range/Units 20:18 20:18 23:11 WBC 17.5 H 19.2 H (4.5-11.0) K/mm3 Hgb 8.2 L 8.3 L (10.1-14.3) gm/dl Hct 27.4 L 28.6 L (30.3-42.9) % MCV 60 L 61 L (79-97) fl MCH 18 L 18 L (28-32) pg MCHC 29 L (30-34) % RDW 19.8 H 20.1 H (13.2-15.2) % Plt Count 453 H 447 H (140-440) K/mm3 Lymph % (Auto) 6.6 L (13.4-35.0) % Seg Neutrophils % 88.3 H (40.0-70.0) % Seg Neuts % (Manual) 89.0 H (40.0-70.0) % Lymphocytes % (Manual) 7.0 L (13.4-35.0) % Seg Neutrophils # 15.4 H (1.8-7.7) K/mm3 Seg Neutrophils # Man 17.1 H (1.8-7.7) K/mm3 Lymphocytes # (Manual) (1.2-5.4) K/mm3 Sodium 133 L (137-145) mmol/L Carbon Dioxide 19 L (22-30) mmol/L BUN (7-17) mg/dL Creatinine 0.5 L (0.7-1.2) mg/dL Glucose 133 H (65-100) mg/dL Calcium (8.4-10.2) mg/dL Iron (37-170) ug/dL Ferritin (13.0-400.0) ng/mL Albumin 3.8 L (3.9-5) g/dL Lipase 109 H (13-60) units/L 10/07/18 10/07/18 10/07/18 Range/Units 07:35 07:35 08:19 WBC 19.1 H (4.5-11.0) K/mm3 Hgb 7.6 L (10.1-14.3) gm/dl Hct 25.5 L (30.3-42.9) % MCV 61 L (79-97) fl MCH 18 L (28-32) pg MCHC (30-34) % RDW 19.5 H (13.2-15.2) % Plt Count (140-440) K/mm3 Lymph % (Auto) (13.4-35.0) % Seg Neutrophils % (40.0-70.0) % Seg Neuts % (Manual) 91.0 H (40.0-70.0) % Lymphocytes % (Manual) 4.0 L (13.4-35.0) % Seg Neutrophils # (1.8-7.7) K/mm3 Seg Neutrophils # Man 17.4 H (1.8-7.7) K/mm3 Lymphocytes # (Manual) 0.8 L (1.2-5.4) K/mm3 Sodium (137-145) mmol/L Carbon Dioxide (22-30) mmol/L BUN (7-17) mg/dL Creatinine (0.7-1.2) mg/dL Glucose (65-100) mg/dL Calcium (8.4-10.2) mg/dL Iron 21 L (37-170) ug/dL Ferritin 9.4 L (13.0-400.0) ng/mL Albumin (3.9-5) g/dL Lipase (13-60) units/L 10/07/18 Range/Units 08:19 WBC (4.5-11.0) K/mm3 Hgb (10.1-14.3) gm/dl Hct (30.3-42.9) % MCV (79-97) fl MCH (28-32) pg MCHC (30-34) % RDW (13.2-15.2) % Plt Count (140-440) K/mm3 Lymph % (Auto) (13.4-35.0) % Seg Neutrophils % (40.0-70.0) % Seg Neuts % (Manual) (40.0-70.0) % Lymphocytes % (Manual) (13.4-35.0) % Seg Neutrophils # (1.8-7.7) K/mm3 Seg Neutrophils # Man (1.8-7.7) K/mm3 Lymphocytes # (Manual) (1.2-5.4) K/mm3 Sodium 135 L (137-145) mmol/L Carbon Dioxide 20 L (22-30) mmol/L BUN 5 L (7-17) mg/dL Creatinine 0.4 L (0.7-1.2) mg/dL Glucose 126 H (65-100) mg/dL Calcium 8.0 L (8.4-10.2) mg/dL Iron (37-170) ug/dL Ferritin (13.0-400.0) ng/mL Albumin (3.9-5) g/dL Lipase (13-60) units/L Assessment and Plan Cultures: Blood culture 10/06/2018 no growth today. Assessment: 42 y/o female with obesity and no other medical history; admitted on 10/06/2018 w ith 3-day history of worsening RLL pain associated with nausea: 1) SIRS v/s sepsis: present on admission, manifested by tachycardia, leukocytosis. Etiology unclear. ? presumed TOA. UA neg. Blood culture 10/06/2018 no growth today. 2) Presumed TOA: She reports pain has been on/off for several weeks but became severe. Patient is 10 of 10 and radiates to the right back. Denies vaginal discharge. Denies IUD. LFTs normal. Lipase 109. CT abd showed mild degree fat induration in the right adnexal region surrounding the right ovary. Right ovary measures 4.8 x 2.8 cm. Appendix is located in close proximity to the right ovary. Pelvic US showed Right ovary: 5.6 x 4.4 x 3.9 cm. 2.0 cm cystic dominant follicles are present -Enlarged right ovary with peripheral prominent follicles. DDx. ruptured ovarian cyst, ovarian torsion, endometriosis. 3) Anemia. Recommendations: - follow-up blood cultures - f/u intravaginal US - obtain procalcitonin, C-reactive protein (CRP) - obtain GC and chlamydia, RPR, HIV - ACCOUNT CONTACT ASSOCIATE consult for complete pelvic exam - continue ceftriaxone at 2 gm IV qday, flagyl IV and doxycycline. - close clinical monitor Will follow. Nicole Saravia MD Infectious Diseases [employer] [facility] M [phone] O [phone]
[2018-10-07] MEDS ORDERED: ROCEPHIN/NS 2 GM/100 ML 2 GM/100 ML BAG IV SCH (16:00)
[2018-10-07] MEDS ORDERED: ROCEPHIN/NS 1 GM/50 ML 1 GM/50 ML BAG IV ONE (20:00)
[2018-10-08] MEDS: TYLENOL PO PRN ×2 (01:02→06:14)
[2018-10-08] MEDS: NACL 0.9% 1000 ML 1,000 ML IV SCH ×2 (03:48→12:48)
[2018-10-08 06:00] LABS: Basophils % (Auto) 0.2 % (0.0-1.8); Hematocrit 24.6 % (30.3-42.9); Hemoglobin 7.3 gm/dl (10.1-14.3); Lymphocytes # (Auto) 1.1 K/mm3 (1.2-5.4); Lymphocytes % (Auto) 7.7 % (13.4-35.0); Mean Corpuscular HGB Conc 30 % (30-34); Monocytes # (Auto) 0.7 K/mm3 (0.0-0.8); Monocytes % (Auto) 5.2 % (0.0-7.3); Red Blood Count 4.05 M/mm3 (3.65-5.03)
[2018-10-08 06:04] LABS: Mean Corpuscular Volume 61 fl (79-97); Platelet Count 366 K/mm3 (140-440); Red Cell Distribution Width 20.1 % (13.2-15.2)
[2018-10-08] MEDS: FLAGYL 500 MG/100 ML 500 MG/100 ML BAG IV SCH ×4 (06:09→21:29)
--- NOTE | 2018-10-08 06:17 | Progress Note ---
Assessment and Plan A/P HD#2 abdominal pain ovarian cyst vs PID recommended continued pain meds, abx improved pain decreasing white count 19-14 cultures pending Subjective - Subjective Date of service: 10/08/18 Principal diagnosis: ovarian cyst Interval history: This is a 42 yo G 1 P1 LMP2 weeks ago here for abdominal pain. She states that she had pain yesterday. The pain became unbearable. she reports improvement of pain. no vb. no n,v, f, nor chills. She reports no medical history Patient reports: appetite normal, voiding normally, pain well controlled (Patient reports pain improved), flatus, ambulating normally Objective - Vital Signs Latest vital signs: Vital Signs Temp Pulse Pulse Resp BP Pulse Ox 10/08/18 02:02 18 10/08/18 01:02 18 10/07/18 23:22 98.2 F 114 H 18 126/79 95 10/07/18 22:17 90 18 95 10/07/18 19:30 18 10/07/18 16:42 101 H 95 10/07/18 16:39 98.4 F 20 119/71 10/07/18 11:41 101 H 97 10/07/18 08:37 96 Intake and Output 10/07/18 10/07/18 10/08/18 15:59 23:59 07:59 Intake Total 350 1100 Balance 350 1100 Intake: IV 350 1100 Doxycycline Hyclate 100 250 mg In NaCl 0.9% 250Ml 250 ml @ 250 mls/hr IV Q12H MAURICE Rx#:[id number] FLAGYL 500 MG/100 ML 500 100 100 mg In 100 ml @ 100 mls/hr IV Q8HR MAURICE Rx#: [id number] NaCl 0.9% 1000 ml 1,000 1000 ml @ 150 mls/hr IV DIRECT MAURICE Rx#:[id number] Other: Voiding Method Toilet # Voids 3 Void 3 Weight 92.3 kg - Exam Cardiovascular: Present: Regular rate, Normal S1 Lungs: Present: Clear to auscultation, Normal air movement Abdomen: Present: normal appearance, soft, distention, tenderness, normal bowel sounds. Absent: guarding Vulva: both: normal Uterus: Present: normal. Absent: tenderness Extremities: Present: normal Deep Tendon Reflex Grade: Normal +2 - Labs Labs: Abnormal lab results 10/07/18 10/07/1819 Range/Units 07:35 07:35 08:19 WBC 19.1 H (4.5-11.0) K/mm3 Hgb 7.6 L (10.1-14.3) gm/dl Hct 25.5 L (30.3-42.9) % MCV 61 L (79-97) fl MCH 18 L (28-32) pg RDW 19.5 H (13.2-15.2) % Lymph % (Auto) (13.4-35.0) % Lymph # (1.2-5.4) K/mm3 Seg Neutrophils % (40.0-70.0) % Seg Neuts % (Manual) 91.0 H (40.0-70.0) % Lymphocytes % (Manual) 4.0 L (13.4-35.0) % Seg Neutrophils # (1.8-7.7) K/mm3 Seg Neutrophils # Man 17.4 H (1.8-7.7) K/mm3 Lymphocytes # (Manual) 0.8 L (1.2-5.4) K/mm3 Sodium (137-145) mmol/L Carbon Dioxide (22-30) mmol/L BUN (7-17) mg/dL Creatinine (0.7-1.2) mg/dL Glucose (65-100) mg/dL Calcium (8.4-10.2) mg/dL Iron 21 L (37-170) ug/dL Ferritin 9.4 L (13.0-400.0) ng/mL C-Reactive Protein (0.00-1.30) mg/dL 10/07/18 10/07/18 10/08/18 Range/Units 08:19 16:17 05:50 WBC 14.1 H (4.5-11.0) K/mm3 Hgb 7.3 L (10.1-14.3) gm/dl Hct 24.6 L (30.3-42.9) % MCV 61 L (79-97) fl MCH 18 L (28-32) pg RDW 20.1 H (13.2-15.2) % Lymph % (Auto) 7.7 L (13.4-35.0) % Lymph # 1.1 L (1.2-5.4) K/mm3 Seg Neutrophils % 86.9 H (40.0-70.0) % Seg Neuts % (Manual) (40.0-70.0) % Lymphocytes % (Manual) (13.4-35.0) % Seg Neutrophils # 12.2 H (1.8-7.7) K/mm3 Seg Neutrophils # Man (1.8-7.7) K/mm3 Lymphocytes # (Manual) (1.2-5.4) K/mm3 Sodium 135 L (137-145) mmol/L Carbon Dioxide 20 L (22-30) mmol/L BUN 5 L (7-17) mg/dL Creatinine 0.4 L (0.7-1.2) mg/dL Glucose 126 H (65-100) mg/dL Calcium 8.0 L (8.4-10.2) mg/dL Iron (37-170) ug/dL Ferritin (13.0-400.0) ng/mL C-Reactive Protein 13.20 H (0.00-1.30) mg/dL
[2018-10-08 06:38] LABS: BUN/Creatinine Ratio 6; Blood Urea Nitrogen 3 mg/dL (7-17); Calcium 7.9 mg/dL (8.4-10.2); Hemolysis Index 0
[2018-10-08] MEDS ORDERED: K-DUR PO ONE (10:00)
[2018-10-08] MEDS: DOXYCYCLINE HYCLATE 100 MG in NACL 0.9% 250ML 250 ML IV SCH ×2 (10:57→19:41)
[2018-10-08] MEDS: ROCEPHIN/NS 2 GM/100 ML 2 GM/100 ML BAG IV SCH (10:57)
[2018-10-08] MEDS: LOVENOX SUB-Q SCH (10:57)
[2018-10-08] MEDS: SODIUM CHLORIDE FLUSH SYRINGE 10 ML IV SCH ×2 (10:59→21:30)
[2018-10-08] MEDS: MORPHINE IV PRN (12:48)
--- NOTE | 2018-10-08 14:09 | Progress Note ---
Assessment and Plan Assessment and plan: Sepsis, presumed tubo-ovarian abscess - Patient is on broad-spectrum IV antibiotics - Pain control -ID consult appreciated - WBC is trending down, pain is getting better - LEAD PHARMACY TECHNICIAN consult appreciated DVT prophylaxis Disposition - Possible discharge tomorrow with by mouth antibiotics if the patient does c ontinue to be getting better History Interval history: Patient was seen and evaluated this morning, right lower quadrant pain is getting better. No fever reported overnight. Hospitalist Physical - Physical exam Narrative exam: Not in cardiopulmonary distress. The patient appeared well nourished and normally developed. Vital signs as documented. Head exam is unremarkable. No scleral icterus . Neck is without jugular venous distension, thyromegaly, or carotid bruits. Lungs are clear to auscultation. Cardiac exam reveals regular rate and Rhythm. First and second heart sounds normal. No murmurs, rubs or gallops. Abdominal exam reveals mild right lower quadrant tenderness. Extremities are nonedematous and both femoral and pedal pulses are normal. P[employer]CH [employer]ESS [employer]TER: Alert and oriented 3. No focal weakness. - Constitutional Vitals: Temp Pulse Resp BP Pulse Ox 100.8 F H 111 H 20 124/67 100 10/08/18 12:25 10/08/18 12:25 10/08/18 12:25 10/08/18 12:25 10/08/18 12:25 Results - Labs CBC & Chem 7: 10/08/18 05:50 10/08/18 05:50 Labs: Laboratory Last Values WBC 14.1 K/mm3 (4.5-11.0) H 10/08/18 05:50 RBC 4.05 M/mm3 (3.65-5.03) 10/08/18 05:50 Hgb 7.3 gm/dl (10.1-14.3) L 10/08/18 05:50 Hct 24.6 % (30.3-42.9) L 10/08/18 05:50 MCV 61 fl (79-97) L 10/08/18 05:50 MCH 18 pg (28-32) L 10/08/18 05:50 MCHC 30 % (30-34) 10/08/18 05:50 RDW 20.1 % (13.2-15.2) H 10/08/18 05:50 Plt Count 366 K/mm3 (140-440) 10/08/18 05:50 Lymph % (Auto) 7.7 % (13.4-35.0) L 10/08/18 05:50 [place] % (Auto) 5.2 % (0.0-7.3) 10/08/18 05:50 Eos % (Auto) 0.0 % (0.0-4.3) 10/08/18 05:50 Baso % (Auto) 0.2 % (0.0-1.8) 10/08/18 05:50 Lymph # 1.1 K/mm3 (1.2-5.4) L 10/08/18 05:50 [place] # 0.7 K/mm3 (0.0-0.8) 10/08/18 05:50 Eos # 0.0 K/mm3 (0.0-0.4) 10/08/18 05:50 Baso # 0.0 K/mm3 (0.0-0.1) 10/08/18 05:50 Add Manual Diff Complete 10/07/18 08:19 Total Counted 100 10/07/18 08:19 Seg Neutrophils % 86.9 % (40.0-70.0) H 10/08/18 05:50 Seg Neuts % (Manual) 91.0 % (40.0-70.0) H 10/07/18 08:19 Band Neutrophils % 1.0 % 10/07/18 08:19 Lymphocytes % (Manual) 4.0 % (13.4-35.0) L 10/07/18 08:19 Reactive Lymphs % (Man) 0 % 10/07/18 08:19 Monocytes % (Manual) 4.0 % (0.0-7.3) 10/07/18 08:19 Eosinophils % (Manual) 0 % (0.0-4.3) 10/07/18 08:19 Basophils % (Manual) 0 % (0.0-1.8) 10/07/18 08:19 Metamyelocytes % 0 % 10/07/18 08:19 Myelocytes % 0 % 10/07/18 08:19 Promyelocytes % 0 % 10/07/18 08:19 Blast Cells % 0 % 10/07/18 08:19 Nucleated RBC % Not Reportable 10/07/18 08:19 Seg Neutrophils # 12.2 K/mm3 (1.8-7.7) H 10/08/18 05:50 Seg Neutrophils # Man 17.4 K/mm3 (1.8-7.7) H 10/07/18 08:19 Band Neutrophils # 0.2 K/mm3 10/07/18 08:19 Lymphocytes # (Manual) 0.8 K/mm3 (1.2-5.4) L 10/07/18 08:19 Abs React Lymphs (Man) 0.0 K/mm3 10/07/18 08:19 Monocytes # (Manual) 0.8 K/mm3 (0.0-0.8) 10/07/18 08:19 Eosinophils # (Manual) 0.0 K/mm3 (0.0-0.4) 10/07/18 08:19 Basophils # (Manual) 0.0 K/mm3 (0.0-0.1) 10/07/18 08:19 Metamyelocytes # 0.0 K/mm3 10/07/18 08:19 Myelocytes # 0.0 K/mm3 10/07/18 08:19 Promyelocytes # 0.0 K/mm3 10/07/18 08:19 Blast Cells # 0.0 K/mm3 10/07/18 08:19 WBC Morphology Not Reportable 10/07/18 08:19 Hypersegmented Neuts Not Reportable 10/07/18 08:19 Hyposegmented Neuts Not Reportable 10/07/18 08:19 Hypogranular Neuts Not Reportable 10/07/18 08:19 Smudge Cells Not Reportable 10/07/18 08:19 Toxic Granulation Not Reportable 10/07/18 08:19 Toxic Vacuolation Not Reportable 10/07/18 08:19 Dohle Bodies Not Reportable 10/07/18 08:19 Pelger-Huet Anomaly Not Reportable 10/07/18 08:19 Melo Rods Not Reportable 10/07/18 08:19 Platelet Estimate Consistent w auto 10/07/18 08:19 Clumped Platelets Not Reportable 10/07/18 08:19 Plt Clumps, EDTA Not Reportable 10/07/18 08:19 Large Platelets Few 10/07/18 08:19 Giant Platelets Not Reportable 10/07/18 08:19 Platelet Satelliting Not Reportable 10/07/18 08:19 Plt Morphology Comment Not Reportable 10/07/18 08:19 RBC Morphology Not Reportable 10/07/18 08:19 Dimorphic RBCs Not Reportable 10/07/18 08:19 Polychromasia Not Reportable 10/07/18 08:19 Hypochromasia 3+ 10/07/18 08:19 Poikilocytosis Not Reportable 10/07/18 08:19 Anisocytosis Not Reportable 10/07/18 08:19 Microcytosis 2+ 10/07/18 08:19 Macrocytosis Not Reportable 10/07/18 08:19 Spherocytes Not Reportable 10/07/18 08:19 Pappenheimer Bodies Not Reportable 10/07/18 08:19 Sickle Cells Not Reportable 10/07/18 08:19 Target Cells Not Reportable 10/07/18 08:19 Tear Drop Cells Few 10/07/18 08:19 Ovalocytes 1+ 10/07/18 08:19 Helmet Cells Not Reportable 10/07/18 08:19 [place] Bodies Not Reportable 10/07/18 08:19 [place] Rings Not Reportable 10/07/18 08:19 Sonya Cells Not Reportable 10/07/18 08:19 Bite Cells Not Reportable 10/07/18 08:19 Crenated Cell Not Reportable 10/07/18 08:19 Elliptocytes 1+ 10/07/18 08:19 Acanthocytes (Spur) Not Reportable 10/07/18 08:19 Rouleaux Not Reportable 10/07/18 08:19 Hemoglobin C Crystals Not Reportable 10/07/18 08:19 Schistocytes Not Reportable 10/07/18 08:19 Malaria parasites Not Reportable 10/07/18 08:19 Chip Bodies Not Reportable 10/07/18 08:19 Hem Pathologist Commnt No 10/07/18 08:19 Sodium 138 mmol/L (137-145) 10/08/18 05:50 Potassium 3.0 mmol/L (3.6-5.0) L D 10/08/18 05:50 Chloride 106.1 mmol/L (98-107) 10/08/18 05:50 Carbon Dioxide 20 mmol/L (22-30) L 10/08/18 05:50 Anion Gap 15 mmol/L 10/08/18 05:50 BUN 3 mg/dL (7-17) L 10/08/18 05:50 Creatinine 0.5 mg/dL (0.7-1.2) L 10/08/18 05:50 Estimated GFR > 60 ml/min 10/08/18 05:50 BUN/Creatinine Ratio 6 % 10/08/18 05:50 Glucose 106 mg/dL (65-100) H 10/08/18 05:50 Lactic Acid 1.20 mmol/L (0.7-2.0) 10/07/18 01:43 Calcium 7.9 mg/dL (8.4-10.2) L 10/08/18 05:50 Iron 21 ug/dL (37-170) L 10/07/18 07:35 TIBC 415 mcg/dL (250-450) 10/07/18 07:35 Ferritin 9.4 ng/mL (13.0-400.0) L 10/07/18 07:35 Total Bilirubin 0.20 mg/dL (0.1-1.2) 10/06/18 20:18 Direct Bilirubin < 0.2 mg/dL (0-0.2) 10/06/18 20:18 Indirect Bilirubin 0.0 mg/dL 10/06/18 20:18 AST 18 units/L (5-40) 10/06/18 20:18 ALT 14 units/L (7-56) 10/06/18 20:18 Alkaline Phosphatase 88 units/L (35-129) 10/06/18 20:18 C-Reactive Protein 13.20 mg/dL (0.00-1.30) H 10/07/18 16:17 Total Protein 7.8 g/dL (6.3-8.2) 10/06/18 20:18 Albumin 3.8 g/dL (3.9-5) L 10/06/18 20:18 Albumin/Globulin Ratio 1.0 % 10/06/18 20:18 Lipase 109 units/L (13-60) H 10/06/18 20:18 HCG, Qual Negative (Negative) 10/06/18 20:18 Urine Color Yellow (Yellow) 10/06/18 21:20 Urine Turbidity Clear (Clear) 10/06/18 21:20 Urine pH 5.0 (5.0-7.0) 10/06/18 21:20 Ur Specific [place] 1.028 (1.003-1.030) 10/06/18 21:20 Urine Protein 100 mg/dl mg/dL (Negative) 10/06/18 21:20 Urine Glucose (UA) Neg mg/dL (Negative) 10/06/18 21:20 Urine Ketones Neg mg/dL (Negative) 10/06/18 21:20 Urine Blood Neg (Negative) 10/06/18 21:20 Urine Nitrite Neg (Negative) 10/06/18 21:20 Urine Bilirubin Neg (Negative) 10/06/18 21:20 Urine Urobilinogen < 2.0 mg/dL (<2.0) 10/06/18 21:20 Ur Leukocyte Esterase Neg (Negative) 10/06/18 21:20 Urine WBC (Auto) 1.0 /HPF (0.0-6.0) 10/06/18 21:20 Urine RBC (Auto) 4.0 /HPF (0.0-6.0) 10/06/18 21:20 U Epithel Cells (Auto) 2.0 /HPF (0-13.0) 10/06/18 21:20 Urine Mucus Few /HPF 10/06/18 21:20 Active Medications - Current Medications Current Medications: Generic Name Dose Route Start Last Admin Trade Name Freq PRN Reason Stop Dose Admin Acetaminophen 650 mg 10/07/18 05:50 10/08/18 06:14 Tylenol PO 650 mg Q4H PRN Administration Pain MILD(1-3)/Fever >100.5/KIRKPATRICK Enoxaparin Sodium 40 mg 10/07/18 10:00 10/08/18 10:57 Lovenox SUB-Q 40 mg QDAY MAURICE Administration Hydromorphone HCl 0.5 mg 10/06/18 22:26 10/07/18 13:11 Dilaudid IV 0.5 mg Q4H PRN Administration Pain , Severe (7-10) Sodium Chloride 1,000 mls @ 150 mls/hr 10/07/18 05:00 10/08/18 12:48 Nacl 0.9% 1000 Ml IV 150 mls/hr DIRECT MAURICE Administration Doxycycline Hyclate 100 mg/ 250 mls @ 250 mls/hr 10/07/18 08:00 10/08/18 10:57 Sodium Chloride IV 250 mls/hr Q12H MAURICE Administration Protocol Metronidazole 500 mg in 100 mls @ 100 mls/hr 10/07/18 06:00 10/08/18 08:12 Flagyl 500 Mg/100 Ml IV Not Given Q8HR [facility] Protocol Ceftriaxone Sodium 2 gm in 100 mls @ 200 mls/hr 10/08/18 10:00 10/08/18 10:57 Rocephin/Ns 2 Gm/100 Ml IV 200 mls/hr Q24HR MAURICE Administration Protocol Morphine Sulfate 2 mg 10/07/18 04:58 10/08/18 12:48 Morphine IV 2 mg Q4H PRN Administration Pain, Moderate (4-6) Ondansetron HCl 4 mg 10/07/18 05:50 Zofran IV Q4H PRN Nausea And Vomiting Oxycodone/Acetaminophen 2 tab 10/07/18 11:30 Percocet 5/325 PO Q4H PRN Pain, Moderate (4-6) Sodium Chloride 10 ml 10/07/18 10:00 10/08/18 10:59 Sodium Chloride Flush Syringe 10 Ml IV 10 ml BID MAURICE Administration Sodium Chloride 10 ml 10/07/18 05:50 Sodium Chloride Flush Syringe 10 Ml IV PRN PRN LINE FLUSH
[2018-10-08] MEDS: ZOFRAN IV PRN (19:50)
[2018-10-08] MEDS: DILAUDID IV PRN (19:50)
[2018-10-09] MEDS: NACL 0.9% 1000 ML 1,000 ML IV SCH ×2 (00:01→06:17)
[2018-10-09] MEDS: ZOFRAN IV PRN ×2 (05:01→18:36)
[2018-10-09] MEDS: DILAUDID IV PRN (05:01)
[2018-10-09] MEDS: FLAGYL 500 MG/100 ML 500 MG/100 ML BAG IV SCH ×3 (06:17→22:22)
--- NOTE | 2018-10-09 07:35 | Progress Note ---
Assessment and Plan A/P HD#3 abdominal pain ovarian cyst vs PID recommended continued pain meds, abx continued improved pain decreasing white count 19-14, consider repeating today for trend cultures pending Subjective - Subjective Date of service: 10/09/18 Principal diagnosis: ovarian cyst possible toa Interval history: This is a 42 yo G 1 P1 LMP2 weeks ago here for abdominal pain. She states that she had pain yesterday. The pain became unbearable. she reports improvement of pain. no vb. no n,v, f, nor chills. She reports no medical history Patient reports: appetite normal, voiding normally, pain well controlled, flatus, ambulating normally Objective - Vital Signs Latest vital signs: Vital Signs Temp Pulse Pulse Resp BP Pulse Ox 10/09/18 05:31 18 10/09/18 05:28 99.1 F 94 H 20 119/70 93 10/08/18 22:15 97.5 F L 107 H 28 H 117/68 90 10/08/18 20:20 18 10/08/18 19:58 100 H 10/08/18 19:50 18 10/08/18 12:25 100.8 F H 111 H 20 124/67 100 Intake and Output 10/08/18 10/08/18 10/09/18 15:59 23:59 07:59 Intake Total 2070 1900 940 Balance 2070 1900 940 Intake: IV 1350 1100 940 Doxycycline Hyclate 100 250 mg In NaCl 0.9% 250Ml 250 ml @ 250 mls/hr IV Q12H MAURICE Rx#:[id number] FLAGYL 500 MG/100 ML 500 100 100 mg In 100 ml @ 100 mls/hr IV Q8HR MAURICE Rx#: [id number] NaCl 0.9% 1000 ml 1,000 1000 1000 940 ml @ 150 mls/hr IV DIRECT MAURICE Rx#:[id number] Oral 720 800 0 Other: Total, Intake Amount 720 800 0 Voiding Method Toilet Toilet Toilet # Voids Void 1 Weight 96.6 kg Patient Weight 10/09/18 23:59 Weight 96.6 kg - Exam Breasts: Present: normal Cardiovascular: Present: Regular rate, Normal S1 Lungs: Present: Clear to auscultation, Normal air movement Abdomen: Present: normal appearance, soft, tenderness, normal bowel sounds. Absent: distention, guarding Uterus: Present: normal, firm. Absent: bogginess, tenderness Extremities: Present: normal Deep Tendon Reflex Grade: Normal +2
[2018-10-09 07:58] LABS: Basophils % (Auto) 0.2 % (0.0-1.8); Eosinophils % (Auto) 0.1 % (0.0-4.3); Hematocrit 21.7 % (30.3-42.9); Hemoglobin 6.5 gm/dl (10.1-14.3); Lymphocytes # (Auto) 1.1 K/mm3 (1.2-5.4); Mean Corpuscular HGB Conc 30 % (30-34); Monocytes # (Auto) 1.3 K/mm3 (0.0-0.8); Monocytes % (Auto) 8.1 % (0.0-7.3); Platelet Count 383 K/mm3 (140-440); Red Blood Count 3.61 M/mm3 (3.65-5.03); Red Cell Distribution Width 19.9 % (13.2-15.2)
[2018-10-09 08:08] LABS: Mean Corpuscular Volume 60 fl (79-97)
[2018-10-09 08:56] LABS: BUN/Creatinine Ratio 10; Blood Urea Nitrogen 4 mg/dL (7-17); Calcium 7.9 mg/dL (8.4-10.2); Hemolysis Index 0
[2018-10-09] MEDS: DOXYCYCLINE HYCLATE 100 MG in NACL 0.9% 250ML 250 ML IV SCH ×2 (08:56→22:51)
[2018-10-09] MEDS: LOVENOX SUB-Q SCH (09:22)
[2018-10-09] MEDS: ROCEPHIN/NS 2 GM/100 ML 2 GM/100 ML BAG IV SCH (09:22)
[2018-10-09] MEDS: SODIUM CHLORIDE FLUSH SYRINGE 10 ML IV SCH ×2 (09:22→22:52)
--- NOTE | 2018-10-09 13:05 | Progress Note ---
Assessment and Plan - Patient Problems (1) Tubo-ovarian abscess Current Visit: Yes Status: Acute Plan to address problem: Patient's septic secondary to tubo-ovarian abscess. Appears to be responding to antibiotics. Patient on Rocephin DAC C and Flagyl. White count has come down from 17-14. Fever curve is also coming down as well. He is also improving continue current antibiotic coverage. (2) Anemia Current Visit: Yes Status: Acute Plan to address problem: secondary to underlying infection sepsis. Will transfuse 1 unit PRBC (3) Sepsis Current Visit: Yes Status: Acute History Interval history: Patient has shown significant improvement today. Pain is improved clinically able to move around more. Fever curve also coming down. Hospital course complicated over p.m. by a decreased H&H to 6 and 21. And hypokalemia. Hospitalist Physical - Constitutional Vitals: Temp Pulse Resp BP Pulse Ox 99.1 F 94 H 18 119/70 93 10/09/18 05:28 10/09/18 05:28 10/09/18 05:31 10/09/18 05:28 10/09/18 05:28 General appearance: Present: no acute distress - EENT Eyes: Present: PERRL, EOM intact ENT: hearing intact, clear oral mucosa, dentition normal, no oropharyngeal erythema, no poor dentition, no thrush - Neck Neck: Present: supple, normal ROM - Respiratory Respiratory: bilateral: CTA - Cardiovascular Rhythm: regular - Extremities Extremities: no ischemia, pulses intact, pulses symmetrical, No edema, normal temperature, normal color Peripheral Pulses: within normal limits - Abdominal General gastrointestinal: soft, tender (left lower quadrant) Localized gastrointestinal: tender: LLQ (tenderness only to deep palpation) - Integumentary Integumentary: Present: clear, warm, dry - Psychiatric Psychiatric: appropriate mood/affect, intact judgment & insight - Neurologic Neurologic: CNII-XII intact, no focal deficits, moves all extremities Results - Labs CBC & Chem 7: 10/09/18 06:45 10/09/18 06:45 Labs: Laboratory Last Values WBC 15.5 K/mm3 (4.5-11.0) H 10/09/18 06:45 RBC 3.61 M/mm3 (3.65-5.03) L 10/09/18 06:45 Hgb 6.5 gm/dl (10.1-14.3) L 10/09/18 06:45 Hct 21.7 % (30.3-42.9) L 10/09/18 06:45 MCV 60 fl (79-97) L 10/09/18 06:45 MCH 18 pg (28-32) L 10/09/18 06:45 MCHC 30 % (30-34) 10/09/18 06:45 RDW 19.9 % (13.2-15.2) H 10/09/18 06:45 Plt Count 383 K/mm3 (140-440) 10/09/18 06:45 Lymph % (Auto) 7.0 % (13.4-35.0) L 10/09/18 06:45 [place] % (Auto) 8.1 % (0.0-7.3) H 10/09/18 06:45 Eos % (Auto) 0.1 % (0.0-4.3) 10/09/18 06:45 Baso % (Auto) 0.2 % (0.0-1.8) 10/09/18 06:45 Lymph # 1.1 K/mm3 (1.2-5.4) L 10/09/18 06:45 [place] # 1.3 K/mm3 (0.0-0.8) H 10/09/18 06:45 Eos # 0.0 K/mm3 (0.0-0.4) 10/09/18 06:45 Baso # 0.0 K/mm3 (0.0-0.1) 10/09/18 06:45 Add Manual Diff Complete 10/07/18 08:19 Total Counted 100 10/07/18 08:19 Seg Neutrophils % 84.6 % (40.0-70.0) H 10/09/18 06:45 Seg Neuts % (Manual) 91.0 % (40.0-70.0) H 10/07/18 08:19 Band Neutrophils % 1.0 % 10/07/18 08:19 Lymphocytes % (Manual) 4.0 % (13.4-35.0) L 10/07/18 08:19 Reactive Lymphs % (Man) 0 % 10/07/18 08:19 Monocytes % (Manual) 4.0 % (0.0-7.3) 10/07/18 08:19 Eosinophils % (Manual) 0 % (0.0-4.3) 10/07/18 08:19 Basophils % (Manual) 0 % (0.0-1.8) 10/07/18 08:19 Metamyelocytes % 0 % 10/07/18 08:19 Myelocytes % 0 % 10/07/18 08:19 Promyelocytes % 0 % 10/07/18 08:19 Blast Cells % 0 % 10/07/18 08:19 Nucleated RBC % Not Reportable 10/07/18 08:19 Seg Neutrophils # 13.1 K/mm3 (1.8-7.7) H 10/09/18 06:45 Seg Neutrophils # Man 17.4 K/mm3 (1.8-7.7) H 10/07/18 08:19 Band Neutrophils # 0.2 K/mm3 10/07/18 08:19 Lymphocytes # (Manual) 0.8 K/mm3 (1.2-5.4) L 10/07/18 08:19 Abs React Lymphs (Man) 0.0 K/mm3 10/07/18 08:19 Monocytes # (Manual) 0.8 K/mm3 (0.0-0.8) 10/07/18 08:19 Eosinophils # (Manual) 0.0 K/mm3 (0.0-0.4) 10/07/18 08:19 Basophils # (Manual) 0.0 K/mm3 (0.0-0.1) 10/07/18 08:19 Metamyelocytes # 0.0 K/mm3 10/07/18 08:19 Myelocytes # 0.0 K/mm3 10/07/18 08:19 Promyelocytes # 0.0 K/mm3 10/07/18 08:19 Blast Cells # 0.0 K/mm3 10/07/18 08:19 WBC Morphology Not Reportable 10/07/18 08:19 Hypersegmented Neuts Not Reportable 10/07/18 08:19 Hyposegmented Neuts Not Reportable 10/07/18 08:19 Hypogranular Neuts Not Reportable 10/07/18 08:19 Smudge Cells Not Reportable 10/07/18 08:19 Toxic Granulation Not Reportable 10/07/18 08:19 Toxic Vacuolation Not Reportable 04/26/19 08:19 Dohle Bodies Not Reportable 10/07/18 08:19 Pelger-Huet Anomaly Not Reportable 10/07/18 08:19 Melo Rods Not Reportable 10/07/18 08:19 Platelet Estimate Consistent w auto 10/07/18 08:19 Clumped Platelets Not Reportable 10/07/18 08:19 Plt Clumps, EDTA Not Reportable 10/07/18 08:19 Large Platelets Few 10/07/18 08:19 Giant Platelets Not Reportable 10/07/18 08:19 Platelet Satelliting Not Reportable 10/07/18 08:19 Plt Morphology Comment Not Reportable 10/07/18 08:19 RBC Morphology Not Reportable 10/07/18 08:19 Dimorphic RBCs Not Reportable 10/07/18 08:19 Polychromasia Not Reportable 10/07/18 08:19 Hypochromasia 3+ 10/07/18 08:19 Poikilocytosis Not Reportable 10/07/18 08:19 Anisocytosis Not Reportable 10/07/18 08:19 Microcytosis 2+ 10/07/18 08:19 Macrocytosis Not Reportable 10/07/18 08:19 Spherocytes Not Reportable 10/07/18 08:19 Pappenheimer Bodies Not Reportable 10/07/18 08:19 Sickle Cells Not Reportable 10/07/18 08:19 Target Cells Not Reportable 10/07/18 08:19 Tear Drop Cells Few 10/07/18 08:19 Ovalocytes 1+ 10/07/18 08:19 Helmet Cells Not Reportable 10/07/18 08:19 [place] Bodies Not Reportable 10/07/18 08:19 [place] Rings Not Reportable 10/07/18 08:19 Sonya Cells Not Reportable 10/07/18 08:19 Bite Cells Not Reportable 10/07/18 08:19 Crenated Cell Not Reportable 10/07/18 08:19 Elliptocytes 1+ 10/07/18 08:19 Acanthocytes (Spur) Not Reportable 10/07/18 08:19 Rouleaux Not Reportable 10/07/18 08:19 Hemoglobin C Crystals Not Reportable 10/07/18 08:19 Schistocytes Not Reportable 10/07/18 08:19 Malaria parasites Not Reportable 10/07/18 08:19 Chip Bodies Not Reportable 10/07/18 08:19 Hem Pathologist Commnt No 10/07/18 08:19 Sodium 138 mmol/L (137-145) 10/09/18 06:45 Potassium 3.2 mmol/L (3.6-5.0) L 10/09/18 06:45 Chloride 106.7 mmol/L (98-107) 10/09/18 06:45 Carbon Dioxide 19 mmol/L (22-30) L 10/09/18 06:45 Anion Gap 16 mmol/L 10/09/18 06:45 BUN 4 mg/dL (7-17) L 10/09/18 06:45 Creatinine 0.4 mg/dL (0.7-1.2) L 10/09/18 06:45 Estimated GFR > 60 ml/min 10/09/18 06:45 BUN/Creatinine Ratio 10 % 10/09/18 06:45 Glucose 111 mg/dL (65-100) H 10/09/18 06:45 Lactic Acid 1.20 mmol/L (0.7-2.0) 10/07/18 01:43 Calcium 7.9 mg/dL (8.4-10.2) L 10/09/18 06:45 Iron 21 ug/dL (37-170) L 10/07/18 07:35 TIBC 415 mcg/dL (250-450) 10/07/18 07:35 Ferritin 9.4 ng/mL (13.0-400.0) L 10/07/18 07:35 Total Bilirubin 0.20 mg/dL (0.1-1.2) 10/06/18 20:18 Direct Bilirubin < 0.2 mg/dL (0-0.2) 10/06/18 20:18 Indirect Bilirubin 0.0 mg/dL 10/06/18 20:18 AST 18 units/L (5-40) 10/06/18 20:18 ALT 14 units/L (7-56) 10/06/18 20:18 Alkaline Phosphatase 88 units/L (35-129) 10/06/18 20:18 C-Reactive Protein 13.20 mg/dL (0.00-1.30) H 10/07/18 16:17 Total Protein 7.8 g/dL (6.3-8.2) 10/06/18 20:18 Albumin 3.8 g/dL (3.9-5) L 10/06/18 20:18 Albumin/Globulin Ratio 1.0 % 10/06/18 20:18 Lipase 109 units/L (13-60) H 10/06/18 20:18 HCG, Qual Negative (Negative) 10/06/18 20:18 Urine Color Yellow (Yellow) 10/06/18 21:20 Urine Turbidity Clear (Clear) 10/06/18 21:20 Urine pH 5.0 (5.0-7.0) 10/06/18 21:20 Ur Specific [place] 1.028 (1.003-1.030) 10/06/18 21:20 Urine Protein 100 mg/dl mg/dL (Negative) 10/06/18 21:20 Urine Glucose (UA) Neg mg/dL (Negative) 10/06/18 21:20 Urine Ketones Neg mg/dL (Negative) 10/06/18 21:20 Urine Blood Neg (Negative) 10/06/18 21:20 Urine Nitrite Neg (Negative) 10/06/18 21:20 Urine Bilirubin Neg (Negative) 10/06/18 21:20 Urine Urobilinogen < 2.0 mg/dL (<2.0) 10/06/18 21:20 Ur Leukocyte Esterase Neg (Negative) 10/06/18 21:20 Urine WBC (Auto) 1.0 /HPF (0.0-6.0) 10/06/18 21:20 Urine RBC (Auto) 4.0 /HPF (0.0-6.0) 10/06/18 21:20 U Epithel Cells (Auto) 2.0 /HPF (0-13.0) 10/06/18 21:20 Urine Mucus Few /HPF 10/06/18 21:20 Active Medications - Current Medications Current Medications: Generic Name Dose Route Start Last Admin Trade Name Freq PRN Reason Stop Dose Admin Acetaminophen 650 mg 10/07/18 05:50 10/08/18 06:14 Tylenol PO 650 mg Q4H PRN Administration Pain MILD(1-3)/Fever >100.5/KIRKPATRICK Enoxaparin Sodium 40 mg 10/07/18 10:00 10/09/18 09:22 Lovenox SUB-Q 40 mg QDAY MAURICE Administration Hydromorphone HCl 0.5 mg 10/06/18 22:26 10/09/18 05:01 Dilaudid IV 0.5 mg Q4H PRN Administration Pain , Severe (7-10) Sodium Chloride 1,000 mls @ 150 mls/hr 10/07/18 05:00 10/09/18 06:17 Nacl 0.9% 1000 Ml IV 150 mls/hr DIRECT MAURICE Administration Doxycycline Hyclate 100 mg/ 250 mls @ 250 mls/hr 10/07/18 08:00 10/09/18 08:56 Sodium Chloride IV 250 mls/hr Q12H [facility]ICE Administration Protocol Metronidazole 500 mg in 100 mls @ 100 mls/hr 10/07/18 06:00 10/09/18 06:17 Flagyl 500 Mg/100 Ml IV 100 mls/hr Q8HR [facility] Administration Protocol Ceftriaxone Sodium 2 gm in 100 mls @ 200 mls/hr 10/08/18 10:00 10/09/18 09:22 Rocephin/Ns 2 Gm/100 Ml IV 200 mls/hr Q24HR [facility] Administration Protocol Morphine Sulfate 2 mg 10/07/18 04:58 10/08/18 12:48 Morphine IV 2 mg Q4H PRN Administration Pain, Moderate (4-6) Ondansetron HCl 4 mg 10/07/18 05:50 10/09/18 05:01 Zofran IV 4 mg Q4H PRN Administration Nausea And Vomiting Oxycodone/Acetaminophen 2 tab 10/07/18 11:30 Percocet 5/325 PO Q4H PRN Pain, Moderate (4-6) Sodium Chloride 10 ml 10/07/18 10:00 10/09/18 09:22 Sodium Chloride Flush Syringe 10 Ml IV 10 ml BID MAURICE Administration Sodium Chloride 10 ml 10/07/18 05:50 Sodium Chloride Flush Syringe 10 Ml IV PRN PRN LINE FLUSH
[2018-10-09] MEDS ORDERED: NACL 0.9% 500 ML 500 ML IV ONE (13:10)
[2018-10-09] MEDS: PERCOCET 5/325 PO PRN (14:57)
[2018-10-10] MEDS: DILAUDID IV PRN (01:39)
[2018-10-10] MEDS: ZOFRAN IV PRN ×3 (01:39→15:15)
[2018-10-10] MEDS: NACL 0.9% 1000 ML 1,000 ML IV SCH ×3 (03:39→20:44)
[2018-10-10] MEDS: FLAGYL 500 MG/100 ML 500 MG/100 ML BAG IV SCH ×3 (05:42→22:27)
[2018-10-10] MEDS: PERCOCET 5/325 PO PRN ×3 (07:58→22:27)
[2018-10-10] MEDS: DOXYCYCLINE HYCLATE 100 MG in NACL 0.9% 250ML 250 ML IV SCH ×2 (07:59→20:40)
--- NOTE | 2018-10-10 08:06 | Progress Note ---
Assessment and Plan HD#4 abdominal pain Ovarian cyst vs PID Continue pain medication and IV antibiotics Continue to follow hemoglobin and hematocrit with transfusion as indicated Cultures pending Subjective - Subjective Date of service: 10/10/18 Principal diagnosis: ovarian cyst possible toa Interval history: Pt reports that her right sided pain is still present but is much improved since yesterday. She continues to feel dizzy when she ambulates Patient reports: voiding normally, dizzy ambulation, pain well controlled Objective - Vital Signs Latest vital signs: Vital Signs Temp Pulse Pulse Resp Resp BP Pulse Ox 10/10/18 05:27 99.9 F H 89 20 105/62 96 10/10/18 02:09 18 10/10/18 01:39 18 10/09/18 22:17 98.7 F 89 18 119/68 97 10/09/18 22:00 18 10/09/18 21:59 98.9 F 86 20 114/71 97 10/09/18 21:50 99.1 F 10/09/18 21:28 88 20 117/71 98 10/09/18 20:36 89 10/09/18 20:17 98.7 F 89 18 119/72 98 10/09/18 19:57 97 10/09/18 19:31 16 117/66 10/09/18 19:20 98.7 F 89 18 119/72 98 10/09/18 18:53 16 111/67 10/09/18 18:28 95 H 16 105/66 96 10/09/18 14:50 100.7 F H 101 H 28 H 127/77 99 10/09/18 10:00 95 Intake and Output 10/09/18 10/10/18 10/10/18 22:59 06:59 14:59 Intake Total 350 750 Balance 350 750 Intake: IV 250 Doxycycline Hyclate 100 250 mg In NaCl 0.9% 250Ml 250 ml @ 250 mls/hr IV Q12H [facility] Rx#:[id number] Oral 100 500 Blood Product 250 Leukoreduced Red Blood 250 Cells Unit [id number] Other: Total, Intake Amount 100 500 Weight 98.2 kg - Exam Breasts: Present: deferred Cardiovascular: Present: Regular rate Lungs: Present: Clear to auscultation Abdomen: Present: soft, tenderness (RLQ ). Absent: guarding Extremities: Present: normal - Labs Labs: Abnormal lab results 10/09/18 10/09/18 10/09/18 Range/Units 06:45 06:45 16:28 WBC 15.5 H (4.5-11.0) K/mm3 RBC 3.61 L (3.65-5.03) M/mm3 Hgb 6.5 L (10.1-14.3) gm/dl Hct 21.7 L (30.3-42.9) % MCV 60 L (79-97) fl MCH 18 L (28-32) pg RDW 19.9 H (13.2-15.2) % Lymph % (Auto) 7.0 L (13.4-35.0) % Lymph # 1.1 L (1.2-5.4) K/mm3 Potassium 3.2 L (3.6-5.0) mmol/L Carbon Dioxide 19 L (22-30) mmol/L BUN 4 L (7-17) mg/dL Creatinine 0.4 L (0.7-1.2) mg/dL Glucose 111 H (65-100) mg/dL Calcium 7.9 L (8.4-10.2) mg/dL Crossmatch See Detail
[2018-10-10] MEDS: LOVENOX SUB-Q SCH (10:09)
[2018-10-10] MEDS: ROCEPHIN/NS 2 GM/100 ML 2 GM/100 ML BAG IV SCH (10:09)
[2018-10-10] MEDS: SODIUM CHLORIDE FLUSH SYRINGE 10 ML IV SCH ×2 (10:13→22:30)
--- NOTE | 2018-10-10 10:46 | Progress Note ---
Assessment and Plan Cultures: Blood culture 10/06/2018 no growth. Assessment: 42 y/o female with obesity and no other medical history; admitted on 10/06/2018 with 3-day history of worsening RLL pain associated with nausea: 1) SIRS v/s sepsis: Improved. Present on admission. Etiology unclear. ? presumed TOA. UA neg. Blood culture show no growth..CRP 13.2 2) Presumed TOA: She reports pain has been on/off for several weeks but became severe. Patient is 10 of 10 and radiates to the right back. Denies vaginal di scharge. Denies IUD. LFTs normal. Lipase 109. CT abd showed mild degree fat induration in the right adnexal region surrounding the right ovary. Right ovary measures 4.8 x 2.8 cm. Appendix is located in close proximity to the right ovary. Pelvic US showed Right ovary: 5.6 x 4.4 x 3.9 cm. 2.0 cm cystic dominant follicles are present. Intravaginal US showed enlarged right ovary containing multiple functional cysts. no evidence of torsion. DDx. ruptured ovarian cyst, endometriosis. 3) Anemia. worsening, HGB today 6.5 Recommendations: - f/u procalcitonin, - f/u GC and chlamydia, RPR, HIV - continue ceftriaxone at 2 gm IV qday, D4 - continue Flagyl 500mg IV every 8 hours, D3 - contiue doxycycline 100mg IV BID, D3 - order repeat CRP - close clinical monitoring [facility] M: [phone] O:[phone] Subjective Date of service: 10/10/18 Principal diagnosis: ovarian cyst possible toa Interval history: Patient was seen and examined. Complains right flank and abdominal pain, relieved with analgesics. No fevers. Family at bedside. Objective - Exam Narrative Exam: General appearance: Alert in NAD, conversant Eyes: anicteric sclerae, moist conjunctivae; no lid-lag; PERRLA HENT: Atraumatic; oropharynx clear with moist mucous membranes and no mucosal ulcerations/no oral thrush; normal hard and soft palate. Normal external ears. Neck: Trachea midline; supple, no thyromegaly or lymphadenopathy Lungs: CTA, with normal respiratory effort and no intercostal retractions CV: RRR, no murmurs Abdomen: Soft, TTP RLQ no rebound Extremities: No peripheral edema or extremity lymphadenopathy Skin: Normal temperature, turgor and texture; no rash, ulcers or subcutaneous nodules Psych: Appropriate affect, alert and oriented to person, place and time. Neuro: alert and oriented x 3. Moving all extermities - Constitutional Vitals: Vital Signs Temp Pulse Resp BP Pulse Ox 99.9 F H 89 20 105/62 96 10/10/18 05:27 10/10/18 05:27 10/10/18 05:27 10/10/18 05:27 10/10/18 05:27 Temperature -Last 24 Hours Temperature 99.9 F Temperature 98.7 F Temperature 98.7 F Temperature 98.9 F Temperature 99.1 F Temperature 98.7 F Temperature 98.7 F Temperature 100.7 F - Labs CBC & Chem 7: 10/09/18 06:45 10/09/18 06:45 Labs: Abnormal lab results 10/09/18 Range/Units 16:28 Crossmatch See Detail
--- NOTE | 2018-10-10 13:41 | Progress Note ---
Assessment and Plan /SIRS v/s sepsis: Etiology unclear. ? presumed TOA. UA neg. Blood culture show no growth..CRP 13.2, ID following /Presumed TOA: DDx. ruptured ovarian cyst, endometriosis. - obtain GC and chlamydia, RPR, HIV - continue ceftriaxone at 2 gm IV qday, flagyl IV and doxycycline. / Anemia. s/p one unit PRBc transfusion, monitor H/H /hypokalemia, replete /Morbid obesity, chromosomal disorders counselor for diet and exercise Brief History: 42 y/o female with obesity and no other medical history; admitted on 10/06/2018 with 3-day history of worsening RLL pain associated with nausea: Radiological data: CT abd showed mild degree fat induration in the right adnexal region surrounding the right ovary. Right ovary measures 4.8 x 2.8 cm. Appendix is located in close proximity to the right ovary. Pelvic US showed Right ovary: 5.6 x 4.4 x 3.9 cm. 2.0 cm cystic dominant follicles are present. Intravaginal US showed enlarged right ovary containing multiple functional cysts. no evidence of torsion. Hospitalist Physical exam: GENERAL: well-developed and obese AAF lying on bed appeared to be in no discomfort. HEENT: Normocephalic. Atraumatic. No conjunctival congestion or icterus. Patient has moist mucous membranes. NECK: Supple. Trachea midline. CHEST/LUNGS: Clear to auscultated bilaterally, breathing nonlabored. No wheezes crackles or rhonchi. HEART/CARDIOVASCULAR: Regular in rate and rhythm. S1 and S2 positive. ABDOMEN: Abdomen is soft, mild right LQ tender. Patient has normal bowel sounds. SKIN: There is no rash. Warm and dry. NEURO: No focal motor deficit. Follows command. MUSCULOSKELETAL: No joint effusion or tenderness. EXTRIMITY: No edema, no cyanosis or clubbing. PSYCH: Cooperative. Subjective Date of service: 10/10/18 Principal diagnosis: ovarian cyst possible toa Interval history: patient seen and examined c/o right LQ pain tolerating diet, K still low today Objective - Constitutional Vitals: Vital Signs - 12hr 10/10/18 10/10/18 10/10/18 02:09 05:27 12:49 Temperature 99.9 F H 98.8 F Pulse Rate 89 84 Respiratory 18 20 20 Rate Blood Pressure 105/62 109/69 O2 Sat by Pulse 96 98 Oximetry - Labs CBC & Chem 7: 10/11/18 04:45 10/11/18 04:45 Labs: Abnormal lab results 10/09/18 Range/Units 16:28 Crossmatch See Detail
[2018-10-11] MEDS: FLAGYL 500 MG/100 ML 500 MG/100 ML BAG IV SCH (05:30)
[2018-10-11 06:04] LABS: Hematocrit 25.2 % (30.3-42.9); Hemoglobin 7.8 gm/dl (10.1-14.3); Mean Corpuscular HGB Conc 31 % (30-34); Platelet Count 342 K/mm3 (140-440); Red Blood Count 3.99 M/mm3 (3.65-5.03)
[2018-10-11 06:09] LABS: Mean Corpuscular Volume 63 fl (79-97)
[2018-10-11 06:25] LABS: BUN/Creatinine Ratio 10; Blood Urea Nitrogen 4 mg/dL (7-17); Calcium 7.7 mg/dL (8.4-10.2); Hemolysis Index 2
[2018-10-11] MEDS: NACL 0.9% 1000 ML 1,000 ML IV SCH (07:12)
[2018-10-11 07:29] LABS: Band Neutrophils # (Manual) 0.5 K/mm3; Basophils % (Manual) 0 % (0.0-1.8); Total Cells Counted 100
[2018-10-11 07:30] LABS: Anisocytosis 1+; Hypochromasia 2+; Ovalocytes 1+
--- NOTE | 2018-10-11 07:42 | Progress Note ---
Assessment and Plan HD#5 abdominal pain Ovarian cyst vs PID WBCs normalized Cultures remain negative Transition to PO antibiotics per ID recommendations with close [facility] [employer] follow up Pt has information for [employer] for self-pay status Thank you for allowing us to aid in the care of this patient Subjective - Subjective Date of service: 10/11/18 Principal diagnosis: ovarian cyst possible toa Interval history: Pt feels well today with only slight pain. Otherwise no complaints. Patient reports: appetite normal, voiding normally, pain well controlled, ambulating normally Objective - Vital Signs Latest vital signs: Vital Signs Temp Pulse Resp BP Pulse Ox 10/10/18 22:27 20 10/10/18 17:33 99.0 F 89 20 127/58 97 10/10/18 12:49 98.8 F 84 20 109/69 98 Intake and Output 10/10/18 10/11/18 10/11/18 22:59 06:59 14:59 Intake Total 1580 1950 Balance 1580 1950 Intake: IV 1100 1100 FLAGYL 500 MG/100 ML 500 100 100 mg In 100 ml @ 100 mls/hr IV Q8HR [facility] Rx#: [id number] NaCl 0.9% 1000 ml 1,000 1000 1000 ml @ 150 mls/hr IV DIRECT [facility] Rx#:[id number] Oral 480 Intake, Free Water 850 Other: Total, Intake Amount 480 Voiding Method Toilet Toilet # Voids Void 2 2 - Exam Breasts: Present: deferred Cardiovascular: Present: Regular rate Lungs: Present: Clear to auscultation Abdomen: Present: soft, tenderness (minimal, less than yesterday ) Extremities: Present: normal - Labs Labs: Abnormal lab results 10/11/18 10/11/18 10/11/18 Range/Units 00:26 04:45 04:45 Hgb 7.8 L (10.1-14.3) gm/dl Hct 25.2 L (30.3-42.9) % MCV 63 L (79-97) fl MCH 20 L (28-32) pg RDW 23.0 H (13.2-15.2) % Seg Neuts % (Manual) 72.0 H (40.0-70.0) % Lymphocytes % (Manual) 13.0 L (13.4-35.0) % Potassium 3.1 L (3.6-5.0) mmol/L Chloride 108.5 H (98-107) mmol/L BUN 4 L (7-17) mg/dL Creatinine 0.4 L (0.7-1.2) mg/dL Calcium 7.7 L (8.4-10.2) mg/dL C-Reactive Protein 10.60 H (0.00-1.30) mg/dL
--- NOTE | 2018-10-11 09:41 | Progress Note ---
Assessment and Plan Cultures: Blood culture 10/06/2018 no growth. Assessment: 42 y/o female with obesity and no other medical history; admitted on 10/06/2018 with 3-day history of worsening RLL pain associated with nausea: 1) SIRS v/s sepsis: Improved. Present on admission. Etiology unclear. ? presumed TOA. UA neg. Blood culture show no growth..CRP 13.2. Repeat CRP 10.6 2) Presumed TOA: She reports pain has been on/off for several weeks but became severe. Patient is 10 of 10 and radiates to the right back. Denies vaginal discharge. Denies IUD. LFTs normal. Lipase 109. CT abd showed mild degree fat induration in the right adnexal region surrounding the right ovary. Right ovary measures 4.8 x 2.8 cm. Appendix is located in close proximity to the right ovary. Pelvic US showed Right ovary: 5.6 x 4.4 x 3.9 cm. 2.0 cm cystic dominant follicles are present. Intravaginal US showed enlarged right ovary containing multiple functional cysts. no evidence of torsion. DDx. ruptured ovarian cyst, endometriosis. 3) Anemia. worsening, HGB today 6.5 Recommendations: - f/u procalcitonin, - f/u GC and chlamydia,m RPR - discontinue ceftriaxone - clinically stable - switch to Flagyl 500mg PO every 8 hours and Doxycycline 100 mg PO BID for total 14 days ending 10-21-18 -follow up ID clinic in 3 weeks [facility] M: [phone] O:[phone] Subjective Date of service: 10/11/18 Principal diagnosis: ovarian cyst possible toa Interval history: Patient was seen and examined. Reports right flank and abdominal pain improvement. Tolerating diet well. Objective - Exam Narrative Exam: General appearance: Alert in NAD, conversant Eyes: anicteric sclerae, moist conjunctivae; no lid-lag; PERRLA HENT: Atraumatic; oropharynx clear with moist mucous membranes and no mucosal ulcerations/no oral thrush; normal hard and soft palate. Normal external ears. Neck: Trachea midline; supple, no thyromegaly or lymphadenopathy Lungs: CTA, with normal respiratory effort and no intercostal retractions CV: RRR, no murmurs Abdomen: Soft, TTP RLQ no rebound Extremities: No peripheral edema or extremity lymphadenopathy Skin: Normal temperature, turgor and texture; no rash, ulcers or subcutaneous nodules Psych: Appropriate affect, alert and oriented to person, place and time. Neuro: alert and oriented x 3. Moving all extermities - Constitutional Vitals: Vital Signs Temp Pulse Resp BP Pulse Ox 99.0 F 89 20 127/58 97 10/10/18 17:33 10/10/18 17:33 10/10/18 22:27 10/10/18 17:33 10/10/18 17:33 Temperature -Last 24 Hours Temperature 99.0 F Temperature 98.8 F - Labs CBC & Chem 7: 10/11/18 04:45 10/11/18 04:45 Labs: Abnormal lab results 10/11/18 10/11/18 10/11/18 Range/Units 00:26 04:45 04:45 Hgb 7.8 L (10.1-14.3) gm/dl Hct 25.2 L (30.3-42.9) % MCV 63 L (79-97) fl MCH 20 L (28-32) pg RDW 23.0 H (13.2-15.2) % Seg Neuts % (Manual) 72.0 H (40.0-70.0) % Lymphocytes % (Manual) 13.0 L (13.4-35.0) % Potassium 3.1 L (3.6-5.0) mmol/L Chloride 108.5 H (98-107) mmol/L BUN 4 L (7-17) mg/dL Creatinine 0.4 L (0.7-1.2) mg/dL Calcium 7.7 L (8.4-10.2) mg/dL C-Reactive Protein 10.60 H (0.00-1.30) mg/dL
[2018-10-11] MEDS: VIBRAMYCIN PO SCH ×2 (10:49→21:55)
[2018-10-11] MEDS: ZOFRAN IV PRN ×2 (10:49→16:36)
[2018-10-11] MEDS: LOVENOX SUB-Q SCH (10:49)
[2018-10-11] MEDS: PERCOCET 5/325 PO PRN ×2 (10:49→16:36)
[2018-10-11] MEDS: SODIUM CHLORIDE FLUSH SYRINGE 10 ML IV SCH ×2 (10:50→21:55)
--- NOTE | 2018-10-11 13:08 | Discharge Summary ---
Providers - Providers Date of Admission: 10/07/18 04:58 Date of discharge: 10/11/18 Attending physician: CHANDLER TAPIA 10/07/18 03:57 Consult to Physician [CONS] Urgent Comment: Consulting Provider: KASHMIR MUNGUIA Physician Instructions: Reason For Exam: right ovary enlargement with pain 10/07/18 06:17 Consult to Physician [CONS] Urgent Comment: Consulting Provider: ROHAN DING Physician Instructions: Reason For Exam: SIRS Primary care physician: [facility] Hospitalization Condition: Stable Hospital course: Brief History: 42 y/o female with obesity and no other medical history; admitted on 10/06/2018 with 3-day history of worsening RLL pain associated with nausea. Patient was then admitted for further evaluation and management. Discharge diagnosis and management: /SIRS v/s sepsis: Etiology unclear ? presumed TOA (tubo-ovarian abscess). UA neg. Blood culture show no growth..CRP 13.2, ID was following, will complete treatment as outpt /Presumed TOA: DDx. ruptured ovarian cyst, endometriosis. - obtained GC and chlamydia, RPR, HIV - placed on ceftriaxone at 2 gm IV qday, flagyl IV and doxycycline. - ID recommended to switch to Flagyl 500mg PO every 8 hours and Doxycycline 100 mg PO BID for total 14 days ending 10-21-18 / Anemia. likely from sepsis? s/p one unit PRBc transfusion, H/H stable following transfusion /hypokalemia, repleted /Morbid obesity, counseled for diet and exercise Radiological data: CT abd showed mild degree fat induration in the right adnexal region surrounding the right ovary. Right ovary measures 4.8 x 2.8 cm. Appendix is located in close proximity to the right ovary. Pelvic US showed Right ovary: 5.6 x 4.4 x 3.9 cm. 2.0 cm cystic dominant follicles are present. Intravaginal US showed enlarged right ovary containing multiple functional cysts. no evidence of torsion. Hospitalist Physical exam: GENERAL: well-developed and obese AAF lying on bed appeared to be in no discomfort. HEENT: Normocephalic. Atraumatic. No conjunctival congestion or icterus. Patient has moist mucous membranes. NECK: Supple. Trachea midline. CHEST/LUNGS: Clear to auscultated bilaterally, breathing nonlabored. No wheezes crackles or rhonchi. HEART/CARDIOVASCULAR: Regular in rate and rhythm. S1 and S2 positive. ABDOMEN: Abdomen is soft, no right LQ tender. Patient has normal bowel sounds. SKIN: There is no rash. Warm and dry. NEURO: No focal motor deficit. Follows command. MUSCULOSKELETAL: No joint effusion or tenderness. EXTRIMITY: No edema, no cyanosis or clubbing. PSYCH: Cooperative. Disposition: DC-01 TO HOME OR SELFCARE Time spent for discharge: 34 minutes Core Measure Documentation - Palliative Care Palliative Care/ Comfort Measures: Not Applicable - Core Measures Any of the following diagnoses?: none Exam - Constitutional Vitals: Temp Pulse Resp BP Pulse Ox 98.4 F 77 20 122/77 99 10/11/18 12:52 10/11/18 12:52 10/11/18 12:52 10/11/18 12:52 10/11/18 12:52 Plan Activity: advance as tolerated Weight Bearing Status: Weight Bear as Tolerated Diet: low fat Follow up with: [facility] [Primary Care Provider] - 3-5 Days ROHAN DING MD [Staff Physician] - 7 Days Prescriptions: metroNIDAZOLE [Flagyl TAB] 500 mg PO Q8HR #42 tablet oxyCODONE /ACETAMINOPHEN [Percocet 5/325 mg] 1 tab PO Q8H PRN #7 tablet PRN Reason: Pain, Moderate (4-6) DOXYCYCLINE Hyclate [Vibramycin CAP] 100 mg PO BID #14 capsule
[2018-10-11] MEDS ORDERED: K-DUR PO ONE ×2 (13:30→19:00)
[2018-10-11] MEDS: FLAGYL PO SCH ×2 (13:42→21:55)
[2018-10-11] MEDS: DOXYCYCLINE HYCLATE 100 MG in NACL 0.9% 250ML 250 ML IV SCH (13:42)
[2018-10-11] MEDS: KCL 10MEQ/100ML 10 MEQ/100 ML BAG IV SCH ×3 (14:47→18:38)
[2018-10-11 22:37] VITALS: BP 142/85
== END 2018-10-11 22:38 | disposition home or self-care (01) | DRG 872 ==
LOC: ED 19:57 → 3A 10-07 04:58
PROVIDERS: ADMIT Internal Medicine; ATTEND Internal Medicine
PROC: 30233N1 Transfusion of Nonautologous Red Blood Cells into Peripheral Vein, Percutaneous Approach (ICD-10-PCS; principal; 2018-10-09)
DX: A41.9 Sepsis, unspecified organism (principal); Z68.41 Body mass index [BMI] 40.0-44.9, adult; D64.9 Anemia, unspecified; E87.6 Hypokalemia; E66.01 Morbid (severe) obesity due to excess calories; N70.93 Salpingitis and oophoritis, unspecified; Z82.49 Family history of ischemic heart disease and other diseases of the circulatory system; Z71.3 Dietary counseling and surveillance
CPT/HCPCS: 36415; 74177; 76700; 76830; 76856; 80048; 80076; 81001; 82140; 82728; 83550; 83690; 84132; 84703; 85007; 85025; 86140; 86850; 86900; 86901; 86920; 87040; 87591; 96365; 96375; 96376; G0378; J0295; J0696; J1170; J1650; J2270; J2405; J2543; J3370; J3480; J7030; J7040; J7050; P9016; Q9967